=== PATIENT | male | born 1945 | race American Indian/Alaskan Native ===

== ENCOUNTER → 2017-04-17 | Outpatient (CLI) | payer MEDICARE, OTHER ==
[~2017-04-17] MED LIST: ALBU90OI6 INH; ASPI81CH PO; BENZ100A PO; BUME2 PO; CARV3.125 PO; CEFU500 PO; CLIN150 PO; CLIN300 PO; CODGUAEL PO; Cardizem Cd180 MG PO; Cephalexin500 MG PO; Coumadin6 MG PO; Coumadin7.5 MG PO; DEXA4 PO; DIETHYLPROPION; DILT120 PO; DILT180 PO; FURO40 PO; FURO80 PO; HYDACE5 PO; IBUP800 PO; Keflex500 MG PO; METO.5 PO; METO25 PO; METO50 PO; METOLAZONE PO; Micro-K10 MEQ; POTA10T PO; POTA20LUD PO; POTCHL10ER PO; POTCHL20ER PO; PROM25 PO; PROMACTA; Percocet 10-321 EACH PO; WARF2.5 PO; WARF5 PO
[2017-04-17 17:13] LABS: Albumin, Blood 4.2 g/dL (3.4-5.0); Albumin/Globulin Ratio 1.7 (0.8-1.8); Bilirubin, Total 0.8 mg/dL (0.1-1.0); Bun/Creatinine Ratio 12.3 (12.0-20.0); Calcium, Blood 8.7 mg/dL (8.5-10.1); Creatinine, Blood 1.3 mg/dL (0.60-1.20); Globulin, Blood 2.5 g/dL (2.2-4.0); Potassium, Blood 3.7 mmol/L (3.5-5.5); Total Protein, Blood 6.7 g/dL (6.4-8.2)
== END | disposition home or self-care (01) ==
LOC: LAB 16:18
PROVIDERS: Internal Medicine Hematology & Oncology
DX: C85.18 Unspecified B-cell lymphoma, lymph nodes of multiple sites (principal)
CPT/HCPCS: 80053

== ENCOUNTER → 2017-06-03 | Outpatient (CLI) | payer MEDICARE, OTHER ==
[2017-06-03 18:13] LABS: Prothrombin Time Results 56.9 Sec (9.7-11.5)
[2017-06-03 18:46] LABS: International Normalized Ratio 5.2
== END | disposition home or self-care (01) ==
LOC: LAB SHORT 16:00 → LAB 16:00
PROVIDERS: Internal Medicine Hematology & Oncology
DX: I82.4Z9 Acute embolism and thrombosis of unspecified deep veins of unspecified distal lower extremity (principal); I26.99 Other pulmonary embolism without acute cor pulmonale; D69.59 Other secondary thrombocytopenia
CPT/HCPCS: 85610

== ENCOUNTER 2017-06-10 05:54 | Emergency (ER) | payer MEDICARE, OTHER ==
[~2017-06-10] VITALS: Ht 167.6 cm; Wt 116.6 kg
[2017-06-10 07:00] LABS: BASOPHILS ABSOLUTE AUTO 0.12 K/mm3 (0.00-0.23); BASOPHILS PERCENT AUTO 2 % (0-2); EOSINOPHILS ABSOLUTE AUTO 0.16 K/mm3 (0.00-0.68); EOSINOPHILS PERCENT AUTO 2 % (0-6); Hematocrit 35.6 % (37.0-53.0); Hemoglobin 11.6 g/dL (13.5-17.5); IMMATURE GRAN ABSOLUTE AUTO 0.06 K/mm3 (0.00-0.10); IMMATURE GRAN PERCENT AUTO 1 % (0-1); LYMPHOCYTES ABSOLUTE AUTO 0.49 K/mm3 (0.84-5.20); LYMPHOCYTES PERCENT AUTO 6 % (21-46); MONOCYTES ABSOLUTE AUTO 0.61 K/mm3 (0.16-1.47); MONOCYTES PERCENT AUTO 8 % (4-13); Mean Corpuscular HGB 31.2 pg (26.0-34.0); Mean Corpuscular HGB Conc 32.6 g/dL (31.5-36.5); Mean Corpuscular Volume 96 fL (80-100); NEUTROPHILS ABSOLUTE AUTO 6.67 K/mm3 (1.96-9.15); NEUTROPHILS PERCENT AUTO 82 % (41-73); RDW Coefficient Variation 15.5 % (11.7-14.2); RDW Standard Deviation 53.3 fL (35.1-46.3); Red Blood Cell Count 3.72 M/mm3 (4.30-5.90); White Blood Cell Count 8.11 K/mm3 (4.00-11.30)
[2017-06-10 07:13] LABS: Alanine Aminotransfer (ALT/SGP 27 U/L (12-78); Albumin, Blood 2.9 g/dL (3.4-5.0); Albumin/Globulin Ratio 0.8 (0.8-1.8); Alk Phos 87 U/L (50-136); Anion Gap 7 mmol/L (6-16); Aspartate Aminotrans (AST/SGOT 21 U/L (12-37); Bilirubin, Total 1.6 mg/dL (0.1-1.0); Blood Urea Nitrogen 16 mg/dL (8-24); Bun/Creatinine Ratio 14.5 (12.0-20.0); CO2, Blood 30 mmol/L (21-32); Chloride, Blood 102 mmol/L (98-108); Globulin, Blood 3.5 g/dL (2.2-4.0); Glomerular Filtration Rate >60 (60-); Glucose, Blood 86 mg/dL (70-99); Potassium, Blood 3.3 mmol/L (3.5-5.5); Sodium, Blood 139 mmol/L (136-145); Total Protein, Blood 6.4 g/dL (6.4-8.2); Troponin I <0.015 ng/mL (0.000-0.040)
[2017-06-10 07:18] LABS: International Normalized Ratio 1.1; Prothrombin Time Results 11.5 Sec (9.7-11.5)
[2017-06-10 07:21] LABS: Mean Platelet Volume 13.1 fL (9.1-12.4)
[2017-06-10 07:28] LABS: Platelet Count 24 K/mm3 (150-400)
== END 2017-06-10 10:05 | disposition home or self-care (01) ==
LOC: ER 05:54
PROVIDERS: Emergency Medicine
DX: R07.89 Other chest pain (principal); R06.00 Dyspnea, unspecified; D69.3 Immune thrombocytopenic purpura; M79.81 Nontraumatic hematoma of soft tissue; I48.91 Unspecified atrial fibrillation; Z79.899 Other long term (current) drug therapy; Z86.711 Personal history of pulmonary embolism
CPT/HCPCS: 36415; 71046; 71260; 80053; 84484; 85025; 85610; 93005; 93010; 93971; 99283; Q9967

== ENCOUNTER → 2017-06-26 | Outpatient (CLI) | payer MEDICARE, OTHER ==
[2017-06-26 17:38] LABS: Alanine Aminotransfer (ALT/SGP 17 U/L (12-78); Albumin, Blood 2.9 g/dL (3.4-5.0); Albumin/Globulin Ratio 1.2 (0.8-1.8); Alk Phos 72 U/L (50-136); Anion Gap 7 mmol/L (6-16); Aspartate Aminotrans (AST/SGOT 18 U/L (12-37); Bilirubin, Total 0.7 mg/dL (0.1-1.0); Blood Urea Nitrogen 18 mg/dL (8-24); Bun/Creatinine Ratio 17.1 (12.0-20.0); CO2, Blood 31 mmol/L (21-32); Calcium, Blood 7.9 mg/dL (8.5-10.1); Chloride, Blood 105 mmol/L (98-108); Creatinine, Blood 1.05 mg/dL (0.60-1.20); Free Thyroxine 1.04 ng/dL (0.70-1.60); Globulin, Blood 2.4 g/dL (2.2-4.0); Glomerular Filtration Rate >60 (60-); Glucose, Blood 108 mg/dL (70-99); Potassium, Blood 2.8 mmol/L (3.5-5.5); Sodium, Blood 143 mmol/L (136-145); Total Protein, Blood 5.3 g/dL (6.4-8.2)
== END | disposition home or self-care (01) ==
LOC: LAB SHORT 16:43
PROVIDERS: Internal Medicine Hematology & Oncology
DX: C85.18 Unspecified B-cell lymphoma, lymph nodes of multiple sites (principal); D69.3 Immune thrombocytopenic purpura; R53.81 Other malaise; R53.83 Other fatigue
CPT/HCPCS: 80053; 83735; 84439; 84443

== ENCOUNTER → 2017-07-04 | Outpatient (CLI) | payer MEDICARE, OTHER ==
[2017-07-04 18:35] LABS: Alanine Aminotransfer (ALT/SGP 26 U/L (12-78); Albumin, Blood 3.2 g/dL (3.4-5.0); Albumin/Globulin Ratio 1.2 (0.8-1.8); Alk Phos 83 U/L (50-136); Anion Gap 11 mmol/L (6-16); Aspartate Aminotrans (AST/SGOT 27 U/L (12-37); Bilirubin, Total 0.6 mg/dL (0.1-1.0); Blood Urea Nitrogen 16 mg/dL (8-24); CO2, Blood 30 mmol/L (21-32); Calcium, Blood 8.3 mg/dL (8.5-10.1); Chloride, Blood 101 mmol/L (98-108); Creatinine, Blood 1.07 mg/dL (0.60-1.20); Globulin, Blood 2.7 g/dL (2.2-4.0); Glomerular Filtration Rate >60 (60-); Glucose, Blood 128 mg/dL (70-99); Potassium, Blood 3.1 mmol/L (3.5-5.5); Sodium, Blood 142 mmol/L (136-145); Total Protein, Blood 5.9 g/dL (6.4-8.2)
[2017-07-04 18:41] LABS: International Normalized Ratio 1.09; Prothrombin Time Results 11.4 Sec (9.7-11.5)
== END ==
LOC: LAB 11:25 → LAB SHORT 11:25
PROVIDERS: Internal Medicine Hematology & Oncology
DX: Z79.01 Long term (current) use of anticoagulants (principal); Z51.81 Encounter for therapeutic drug level monitoring; D69.3 Immune thrombocytopenic purpura
CPT/HCPCS: 80053; 85610

== ENCOUNTER → 2018-06-02 | Outpatient (CLI) | payer MEDICARE, OTHER ==
[2018-06-02 13:59] LABS: BASOPHILS ABSOLUTE AUTO 0.03 K/mm3 (0.00-0.23); BASOPHILS PERCENT AUTO 0 % (0-2); EOSINOPHILS ABSOLUTE AUTO 0.23 K/mm3 (0.00-0.68); EOSINOPHILS PERCENT AUTO 2 % (0-6); Hematocrit 41.3 % (37.0-53.0); Hemoglobin 13.3 g/dL (13.5-17.5); IMMATURE GRAN ABSOLUTE AUTO 0.27 K/mm3 (0.00-0.10); IMMATURE GRAN PERCENT AUTO 3 % (0-1); LYMPHOCYTES ABSOLUTE AUTO 0.84 K/mm3 (0.84-5.20); LYMPHOCYTES PERCENT AUTO 8 % (21-46); MONOCYTES PERCENT AUTO 6 % (4-13); Mean Corpuscular HGB 30.6 pg (26.0-34.0); Mean Corpuscular HGB Conc 32.2 g/dL (31.5-36.5); Mean Corpuscular Volume 95 fL (80-100); NEUTROPHILS ABSOLUTE AUTO 8.05 K/mm3 (1.96-9.15); NEUTROPHILS PERCENT AUTO 80 % (41-73); RDW Coefficient Variation 15.8 % (11.7-14.2); RDW Standard Deviation 55.5 fL (35.1-46.3); Red Blood Cell Count 4.35 M/mm3 (4.30-5.90); White Blood Cell Count 10.02 K/mm3 (4.00-11.30)
[2018-06-02 14:07] LABS: Mean Platelet Volume 13.2 fL (9.1-12.4)
[2018-06-02 14:09] LABS: Platelet Count 45 K/mm3 (150-400)
== END | disposition home or self-care (01) ==
LOC: LAB 13:11 → LAB SHORT 13:11
PROVIDERS: Internal Medicine Hematology & Oncology
DX: D69.3 Immune thrombocytopenic purpura (principal)
CPT/HCPCS: 85025

== ENCOUNTER 2018-06-24 06:59 | Day surgery (SDC) | payer MEDICARE, OTHER ==
[~2018-06-24] VITALS: Ht 167.6 cm; Wt 112.7 kg
[~2018-06-24 06:59] MED LIST changes: +DIGOX125 MCG PO; +ELIQUIS5 MG PO; +LOSA50 PO; +METO100ER PO; +SPIR50 PO
--- NOTE | 2018-06-24 07:51 | NUR ---
06/24/18 0751 Mikhail Ludwig 1ST IV ATTEMPT IN LFA UNSUCCESSFUL, ORSC.GERALD 2ND IV ATTEMPT IN LAC UNSUCCESSFUL, ORSC.GERALD 3RD IV ATTEMPT IN RH SUCCESSFUL, ORSC.GERALD
== END 2018-06-24 08:48 | disposition home or self-care (01) ==
LOC: ORSCSDS 06:59
PROVIDERS: Ophthalmology
PROC: 08RJ3JZ Replacement of Right Lens with Synthetic Substitute, Percutaneous Approach (ICD-10-PCS; principal; 2018-06-24 08:00)
DX: H25.11 Age-related nuclear cataract, right eye (principal); I10 Essential (primary) hypertension; I48.91 Unspecified atrial fibrillation; Z79.01 Long term (current) use of anticoagulants; E66.01 Morbid (severe) obesity due to excess calories; Z68.41 Body mass index [BMI] 40.0-44.9, adult
CPT/HCPCS: J2001; J3010; J3301; V2632

== ENCOUNTER 2018-06-29 17:58 | Inpatient (IN) | payer MEDICARE, OTHER ==
[~2018-06-29] VITALS: Ht 172.7 cm; Wt 112.3 kg
[2018-06-29 19:23] LABS: BASOPHILS ABSOLUTE AUTO 0.09 K/mm3 (0.00-0.23); BASOPHILS PERCENT AUTO 1 % (0-2); EOSINOPHILS ABSOLUTE AUTO 0.09 K/mm3 (0.00-0.68); EOSINOPHILS PERCENT AUTO 1 % (0-6); Hematocrit 43.2 % (37.0-53.0); Hemoglobin 13.7 g/dL (13.5-17.5); IMMATURE GRAN ABSOLUTE AUTO 0.07 K/mm3 (0.00-0.10); IMMATURE GRAN PERCENT AUTO 1 % (0-1); LYMPHOCYTES ABSOLUTE AUTO 0.77 K/mm3 (0.84-5.20); LYMPHOCYTES PERCENT AUTO 11 % (21-46); MONOCYTES ABSOLUTE AUTO 0.73 K/mm3 (0.16-1.47); MONOCYTES PERCENT AUTO 10 % (4-13); Mean Corpuscular HGB 30.4 pg (26.0-34.0); Mean Corpuscular HGB Conc 31.7 g/dL (31.5-36.5); Mean Corpuscular Volume 96 fL (80-100); NEUTROPHILS ABSOLUTE AUTO 5.38 K/mm3 (1.96-9.15); NEUTROPHILS PERCENT AUTO 75 % (41-73); RDW Coefficient Variation 16.1 % (11.7-14.2); RDW Standard Deviation 57.1 fL (35.1-46.3); White Blood Cell Count 7.13 K/mm3 (4.00-11.30)
[2018-06-29 19:42] LABS: Platelet Count 10 K/mm3 (150-400)
[2018-06-29 19:49] LABS: Alanine Aminotransfer (ALT/SGP 24 U/L (12-78); Albumin, Blood 3.4 g/dL (3.4-5.0); Albumin/Globulin Ratio 1.2 (0.8-1.8); Alk Phos 74 U/L (50-136); Anion Gap 5 mmol/L (6-16); Aspartate Aminotrans (AST/SGOT 19 U/L (12-37); Bilirubin, Total 0.7 mg/dL (0.1-1.0); Blood Urea Nitrogen 19 mg/dL (8-24); CO2, Blood 29 mmol/L (21-32); Calcium, Blood 8.9 mg/dL (8.5-10.1); Chloride, Blood 106 mmol/L (98-108); Creatinine, Blood 1.19 mg/dL (0.60-1.20); Globulin, Blood 2.8 g/dL (2.2-4.0); Glomerular Filtration Rate >60 (60-); Glucose, Blood 87 mg/dL (70-99); Potassium, Blood 3.9 mmol/L (3.5-5.5); Sodium, Blood 140 mmol/L (136-145); Total Protein, Blood 6.2 g/dL (6.4-8.2)
[2018-06-29 21:08] LABS: International Normalized Ratio 0.99; Prothrombin Time Results 10.5 Sec (9.7-11.5)
[2018-06-29] MEDS ORDERED: Prednisolone Ace5 ML RIGHTEYE (21:17)
[2018-06-29] MEDS ORDERED: Ocuflox5 ML RIGHTEYE (21:19)
[2018-06-29] MEDS ORDERED: KETOROLAC TROMET5 ML RIGHTEYE (21:20)
[2018-06-29 23:52] LABS: Source, Urine Clean Catch
[2018-06-29 23:54] LABS: Bilirubin, Urine Neg (Neg); Blood, Urine Neg (Neg); Glucose Qualitative, Urine Neg (Neg); Ketones, Urine Neg (Neg); Leukocyte Esterase, Urine Neg (Neg); Nitrite, Urine Neg (Neg); Protein, Urine Neg (Neg); Specific Gravity, Urine 1.015 (1.003-1.022); Urobilinogen, Urine NORM (Normal)
[2018-06-29 23:56] LABS: Appearance, Urine Clear (Clear); Color, Urine Yellow (P-Yellow)
--- NOTE | 2018-06-30 01:15 | NUR ---
PT ARRIVES TO ICU 8 VIA GURNEY FROM ER FOR THROMBOCYTOPENIA, STANDS TO TRANSFER WITH STEADY GAIT, STATES PREFERENCE TO REMAIN IN JEANS AND T-SHIRT, DENIES PAIN, DENIES NAUSEA, DENIES SOB/DYSPNEA, DENIES CP/PRESSURE, DENIES NUMBNESS/TINGLING. SPEAKING IN FULL SENTANCES, STATES THAT HE DOES NOT UNDERSTAND WHY HE NEEDS TO BE IN THE ICU. EXPLAINED RISK OF BLEEDING RELATED TO LOW PLATELET COUNT AND THAT HE IS IN THE ICU FOR CLOSE MONITORING FOR BLEEDING. LUNGS CLEAR THROUGHOUT, MAINTAINING SATS ON ROOM AIR, RESP RATE WNL, NO INCREASED WORK OF BREATHING IS NOTED EVEN WITH INCREASE IN ACTIVITY. HR IRREG, AFIB NOTED ON MONITOR, PT STATES HE HAS A HX OF AFIB, RATE CONTROLLED 60-80S, BP STABLE, BRISK CAP REFILL, NO EDEMA NOTED, PULSES FULL X 4 EXTREMITIES. NORMOACTIVE BOWEL TONES NOTED, ABD DISTENDED, SOFT, NO GRIMACING OR GAURDING WITH PALPATION. 20 G SL NOTED TO RIGHT AC, DRESSING CDI, SITE WNL. SCATTERED BRUISING IS NOTED, WILL MONITOR.
[2018-06-30 04:12] LABS: Hemoglobin 13.1 g/dL (13.5-17.5); Mean Corpuscular HGB 30.8 pg (26.0-34.0); Mean Corpuscular Volume 96 fL (80-100); RDW Standard Deviation 57.3 fL (35.1-46.3); Red Blood Cell Count 4.26 M/mm3 (4.30-5.90); White Blood Cell Count 7.15 K/mm3 (4.00-11.30)
[2018-06-30 04:42] LABS: Digoxin (Lanoxin) 0.71 ug/mL (0.80-2.00)
[2018-06-30 04:46] LABS: Platelet Count 12 K/mm3 (150-400)
--- NOTE | 2018-06-30 05:37 | NUR ---
TALKED TO PT, HE STATES HE DOESN'T USE HIS CPAP AT HOME AND HE IS NOT GOING TO USE OURS HERE, SATS 96% ON RA.
--- NOTE | 2018-06-30 06:42 | NUR ---
PT NEW ADMIT THIS SHIFT, HAS STATED THAT HE IS NOT HAPPY WITH ADMISSION AND THAT HE IS TOO BUSY TO BE HOSPITALIZED. THIS AM HE STATES THAT HE BELIEVES HE IS ONLY ADMITTED OVERNOC FOR OBSERVATION OF PLATELET LEVELS. HE IS ALERT AND ORIENTED X 3, SPEAKING IN FULL SENTANCES, CONTINUES TO DENY PAIN, DENIES CP/PRESSURE, DENIES SOB/DYSPNEA, DENIES NAUSEA. CONTINUES WITHOUT SIGNS/SYMPTOMS OF BLEEDING. AM LABS DRAWN FROM 20 G IV TO RIGHT AC, PT TOLERATED WELL. LUNGS REMAIN CLEAR THROUGHOUT, SATS MAINTAINING ON ROOM AIR, RESP RATE WNL, AFIB CONTINUES, PRESSURE MAINTAINING, PULSES REMAIN FULL X 4 EXTREMITIES. ABD REMAINS SOFT WITH ACTIVE BOWEL TONES. PT HAS NOT VOIDED SINCE ADMISSION. PLATELET LEVEL THIS AM REMAINED CRITICALLY LOW HOWEVER IMPROVED TO 12 FROM 10.
--- NOTE | 2018-06-30 07:55 | NUR ---
AM ASSESSMENT: Pt resting in bed. VSS. LS clear. HR irregular, tele shows afib. BT positive. Pulses palp. Pt denies pain. States that he is feeling pretty good. Hoping to be discharged today. Multiple bruising over arms. Will monitor for changes. Pt denies other needs. Call light in reach.
--- NOTE | 2018-06-30 18:21 | NUR ---
shift Summary: Pt has done well this shift. No S/S of bleeding. VSS throughout shift. HR has remained afib rate in the 60's. BT positive. Pt has been voiding clear yellow urine. NO increase in bleeding on arms. Pt has been disappointed that he was not discharged today, and that he has to stay one more night. Explained that the physicains wanted to do one more lab draw in the am to make sure that the decadron is working. Report was called to medical floor RN and pt was transfered to room 340 via w/cNicolás Burnett at time of transfer.
--- NOTE | 2018-06-30 18:31 | NUR ---
ASSUMED CARE ICU TRANSFER AT DINNERTIME. PATIENT SETTLED INTO ROOM. DENIES PAIN, NAUSEA, AND SHORTNESS OF BREATH. INDEPENDENT IN THE ROOM. PATIENT STATES HE BELIEVES HIS PLATELETS SHOULD HAVE BEEN MEASURED AGAIN THIS AFTERNOON. HE WOULD LIKE TO BE RELEASED EARLY POSSIBLE IN THE MORNING. REFUSED DINNER, FAMILY IS BRINGING HIM OUTSIDE FOOD THAT APPEALS BETTER TO HIM. CALL LIGHT IN REACH, WILL CONTINUE TO MONITOR.
--- NOTE | 2018-07-01 02:56 | NUR ---
PT WAS TRANSFERRED FROM icu WITH LOW PLATELET COUNT. HE HAS order for steroids for thrombocytopenia. no s/sx of active bleeding. he is on room air VSS hopes to dc home today. he says he has and appt in [place] today at 1 pm. no stool to [facility]. Denies acute distress. He used own eyegtts said he had cataract removal on 06/25/18 and is seeing weel, better than prior to surgery. Appears to have good family support.
[2018-07-01 05:26] LABS: Hematocrit 41.7 % (37.0-53.0); Hemoglobin 13.5 g/dL (13.5-17.5); Mean Corpuscular HGB Conc 32.4 g/dL (31.5-36.5); Mean Corpuscular Volume 96 fL (80-100); NRBC ABSOLUTE 0.02 K/mm3 (0.00-0.02); NRBC Auto 0.1 /100 WBC (0.0-0.2); Platelet Count 71 K/mm3 (150-400); RDW Coefficient Variation 15.9 % (11.7-14.2); RDW Standard Deviation 56.5 fL (35.1-46.3); Red Blood Cell Count 4.35 M/mm3 (4.30-5.90); White Blood Cell Count 15.16 K/mm3 (4.00-11.30)
--- NOTE | 2018-07-01 06:03 | NUR ---
PT REFUSED PROTONIX THIS AM AND LAST PM. HE IS QUIET AND SAYS HE DOES'T UNDERSTAND WHY HOSPITALS ARE TRYING TO PUSH PILLS IN PEOPLE. EXPLAINED MD HAD RX DUE TO STEROIDS. PT CONTINUED TO REFUSE. NO STOOLS TO SHANDRA.
[2018-07-01] MEDS ORDERED: DEXA4 PO (11:25)
[2018-07-01] MEDS ORDERED: PANT20 PO (11:26)
--- NOTE | 2018-07-01 12:10 | NUR ---
PT DISCHARGED AT 12:10. PT WALKED HIMSELF OUT OF THE HOSPITAL.
== END 2018-07-01 12:05 | disposition home or self-care (01) | DRG 813 ==
LOC: ER 17:58 → ICUW 21:38 → ICUE 21:38 → MEDS 06-30 01:30 → ICUE 06-30 08:28 → MEDS 06-30 18:03
PROVIDERS: Emergency Medicine; Internal Medicine; Nurse Practitioner Acute Care; Physician Assistant; ADMIT Internal Medicine
DX: D69.3 Immune thrombocytopenic purpura (principal); I50.32 Chronic diastolic (congestive) heart failure; E66.2 Morbid (severe) obesity with alveolar hypoventilation; Z96.651 Presence of right artificial knee joint; Z90.81 Acquired absence of spleen; Z68.38 Body mass index [BMI] 38.0-38.9, adult; I48.2 Chronic atrial fibrillation; Z86.711 Personal history of pulmonary embolism; Z86.718 Personal history of other venous thrombosis and embolism
CPT/HCPCS: 36415; 80053; 80162; 81003; 85025; 85027; 85610; 85730; 96374; 99285-25; C9113; J2930

== ENCOUNTER 2018-08-04 23:14 | Emergency (ER) | payer MEDICARE, OTHER ==
[~2018-08-04] VITALS: Ht 165.1 cm; Wt 111.6 kg
[~2018-08-04 23:14] MED LIST changes: +KETOROLAC TROMET5 ML RIGHTEYE; -LOSA50 PO; +LOSARTAN POTAS100 MG PO; +Ocuflox5 ML RIGHTEYE; +PANT20 PO; +Prednisolone Ace5 ML RIGHTEYE; +SPIR25 PO; -SPIR50 PO
[2018-08-05 00:09] LABS: BASOPHILS ABSOLUTE AUTO 0.07 K/mm3 (0.00-0.23); BASOPHILS PERCENT AUTO 1 % (0-2); EOSINOPHILS ABSOLUTE AUTO 0.07 K/mm3 (0.00-0.68); EOSINOPHILS PERCENT AUTO 1 % (0-6); Hematocrit 40.9 % (37.0-53.0); Hemoglobin 13.1 g/dL (13.5-17.5); IMMATURE GRAN ABSOLUTE AUTO 0.47 K/mm3 (0.00-0.10); IMMATURE GRAN PERCENT AUTO 5 % (0-1); LYMPHOCYTES ABSOLUTE AUTO 0.84 K/mm3 (0.84-5.20); LYMPHOCYTES PERCENT AUTO 8 % (21-46); MONOCYTES ABSOLUTE AUTO 1.05 K/mm3 (0.16-1.47); MONOCYTES PERCENT AUTO 10 % (4-13); Mean Corpuscular HGB 31.2 pg (26.0-34.0); Mean Corpuscular Volume 97 fL (80-100); NEUTROPHILS ABSOLUTE AUTO 7.79 K/mm3 (1.96-9.15); NEUTROPHILS PERCENT AUTO 76 % (41-73); NRBC ABSOLUTE 0.02 K/mm3 (0.00-0.02); NRBC Auto 0.2 /100 WBC (0.0-0.2); RDW Coefficient Variation 16.9 % (11.7-14.2); RDW Standard Deviation 60.1 fL (35.1-46.3); White Blood Cell Count 10.29 K/mm3 (4.00-11.30)
[2018-08-05 00:11] LABS: Platelet Count 11 K/mm3 (150-400)
[2018-08-05 00:29] LABS: Alanine Aminotransfer (ALT/SGP 28 U/L (12-78); Alk Phos 72 U/L (50-136); Anion Gap 6 mmol/L (6-16); Aspartate Aminotrans (AST/SGOT 17 U/L (12-37); Bilirubin, Total 0.5 mg/dL (0.1-1.0); Blood Urea Nitrogen 19 mg/dL (8-24); Bun/Creatinine Ratio 15.4 (12.0-20.0); CO2, Blood 29 mmol/L (21-32); Calcium, Blood 8.2 mg/dL (8.5-10.1); Chloride, Blood 106 mmol/L (98-108); Creatinine, Blood 1.23 mg/dL (0.60-1.20); Globulin, Blood 2.9 g/dL (2.2-4.0); Glomerular Filtration Rate >60 (60-); Glucose, Blood 101 mg/dL (70-99); Potassium, Blood 4.4 mmol/L (3.5-5.5); Sodium, Blood 141 mmol/L (136-145); Total Protein, Blood 5.9 g/dL (6.4-8.2)
[2018-08-05] MEDS ORDERED: HYDR1TAB94 PO (00:29)
[2018-08-05] MEDS ORDERED: PRED20 PO (00:29)
[2018-08-05 00:36] LABS: Digoxin (Lanoxin) 0.53 ug/mL (0.80-2.00)
== END 2018-08-05 02:25 | disposition home or self-care (01) ==
LOC: ER 23:14
PROVIDERS: Emergency Medicine
DX: S09.90XA Unspecified injury of head, initial encounter (principal); S50.01XA Contusion of right elbow, initial encounter; M25.511 Pain in right shoulder; D69.6 Thrombocytopenia, unspecified; W10.9XXA Fall (on) (from) unspecified stairs and steps, initial encounter; Z79.899 Other long term (current) drug therapy; Z79.52 Long term (current) use of systemic steroids
CPT/HCPCS: 36415; 70450; 73030; 73070; 80053; 80162; 85025; 86850; 86870; 86900; 86901; 86905; 96374; 96375; 99284-25; J1170; J2405; J2930

== ENCOUNTER 2018-08-19 12:40 | Inpatient (IN) | payer MEDICARE, OTHER ==
[~2018-08-19] VITALS: Ht 167.6 cm; Wt 109.8 kg
[~2018-08-19 12:40] MED LIST changes: +HYDR1TAB94 PO; +PRED20 PO
[2018-08-19 13:40] LABS: BASOPHILS ABSOLUTE AUTO 0.02 K/mm3 (0.00-0.23); BASOPHILS PERCENT AUTO 0 % (0-2); EOSINOPHILS PERCENT AUTO 1 % (0-6); Hematocrit 36.2 % (37.0-53.0); Hemoglobin 11.8 g/dL (13.5-17.5); IMMATURE GRAN ABSOLUTE AUTO 0.33 K/mm3 (0.00-0.10); IMMATURE GRAN PERCENT AUTO 2 % (0-1); LYMPHOCYTES ABSOLUTE AUTO 0.45 K/mm3 (0.84-5.20); LYMPHOCYTES PERCENT AUTO 3 % (21-46); MONOCYTES ABSOLUTE AUTO 0.66 K/mm3 (0.16-1.47); MONOCYTES PERCENT AUTO 4 % (4-13); Mean Corpuscular HGB 31.6 pg (26.0-34.0); Mean Corpuscular HGB Conc 32.6 g/dL (31.5-36.5); Mean Corpuscular Volume 97 fL (80-100); NEUTROPHILS ABSOLUTE AUTO 15.56 K/mm3 (1.96-9.15); NEUTROPHILS PERCENT AUTO 91 % (41-73); NRBC ABSOLUTE 0.06 K/mm3 (0.00-0.02); NRBC Auto 0.4 /100 WBC (0.0-0.2); RDW Coefficient Variation 18.3 % (11.7-14.2); RDW Standard Deviation 63.7 fL (35.1-46.3); Red Blood Cell Count 3.74 M/mm3 (4.30-5.90); White Blood Cell Count 17.12 K/mm3 (4.00-11.30)
[2018-08-19 13:58] LABS: Platelet Count 32 K/mm3 (150-400)
[2018-08-19 14:04] LABS: Alanine Aminotransfer (ALT/SGP 31 U/L (12-78); Albumin, Blood 2.7 g/dL (3.4-5.0); Albumin/Globulin Ratio 0.8 (0.8-1.8); Alk Phos 65 U/L (50-136); Anion Gap 4 mmol/L (6-16); Aspartate Aminotrans (AST/SGOT 21 U/L (12-37); Bilirubin, Total 1.5 mg/dL (0.1-1.0); Blood Urea Nitrogen 27 mg/dL (8-24); CO2, Blood 33 mmol/L (21-32); Calcium, Blood 8.2 mg/dL (8.5-10.1); Chloride, Blood 98 mmol/L (98-108); Creatinine, Blood 1.23 mg/dL (0.60-1.20); Globulin, Blood 3.2 g/dL (2.2-4.0); Glomerular Filtration Rate >60 (60-); Glucose, Blood 88 mg/dL (70-99); Potassium, Blood 3.7 mmol/L (3.5-5.5); Sodium, Blood 135 mmol/L (136-145); Total Protein, Blood 5.9 g/dL (6.4-8.2); Troponin I <0.015 ng/mL (0.000-0.040)
[2018-08-19 15:24] LABS: Digoxin (Lanoxin) 1.04 ug/mL (0.80-2.00)
[2018-08-19 18:18] LABS: Source, Urine Clean Catch
[2018-08-19 18:32] LABS: Appearance, Urine Clear (Clear); Bilirubin, Urine Neg (Neg); Blood, Urine Neg (Neg); Color, Urine Amber (P-Yellow); Glucose Qualitative, Urine Neg (Neg); Ketones, Urine Neg (Neg); Leukocyte Esterase, Urine Neg (Neg); Nitrite, Urine Neg (Neg); Protein, Urine 2+ (Neg); Urobilinogen, Urine 3+ (Normal); pH, Urine 6.5 (5.0-8.0)
[2018-08-19 18:42] LABS: Bacteria Mod /hpf; Red Blood Cells, Urine 0-2 /hpf (0-2); Squamous Epithelial Cells Not Seen /hpf (Few); White Blood Cells, Urine 0-2 /hpf (0-5)
[2018-08-20 03:49] LABS: Hematocrit 30.9 % (37.0-53.0); Hemoglobin 10.1 g/dL (13.5-17.5); Mean Corpuscular HGB 32.1 pg (26.0-34.0); Mean Corpuscular HGB Conc 32.7 g/dL (31.5-36.5); Mean Corpuscular Volume 98 fL (80-100); NRBC ABSOLUTE 0.06 K/mm3 (0.00-0.02); NRBC Auto 0.4 /100 WBC (0.0-0.2); RDW Coefficient Variation 18.3 % (11.7-14.2); RDW Standard Deviation 65.5 fL (35.1-46.3); Red Blood Cell Count 3.15 M/mm3 (4.30-5.90)
[2018-08-20 03:52] LABS: Mean Platelet Volume 13.1 fL (9.1-12.4); Platelet Count 44 K/mm3 (150-400)
[2018-08-20 04:09] LABS: Anion Gap 5 mmol/L (6-16); Blood Urea Nitrogen 21 mg/dL (8-24); Bun/Creatinine Ratio 22.7 (12.0-20.0); CO2, Blood 29 mmol/L (21-32); Calcium, Blood 7.4 mg/dL (8.5-10.1); Chloride, Blood 105 mmol/L (98-108); Creatinine, Blood 0.93 mg/dL (0.60-1.20); Glomerular Filtration Rate >60 (60-); Glucose, Blood 125 mg/dL (70-99); Potassium, Blood 4.1 mmol/L (3.5-5.5); Sodium, Blood 139 mmol/L (136-145)
[2018-08-21 04:44] LABS: Hematocrit 29.6 % (37.0-53.0); Hemoglobin 9.6 g/dL (13.5-17.5); Mean Corpuscular HGB 31.7 pg (26.0-34.0); Mean Corpuscular HGB Conc 32.4 g/dL (31.5-36.5); Mean Corpuscular Volume 98 fL (80-100); Mean Platelet Volume 12.3 fL (9.1-12.4); NRBC ABSOLUTE 0.05 K/mm3 (0.00-0.02); NRBC Auto 0.4 /100 WBC (0.0-0.2); Platelet Count 73 K/mm3 (150-400); RDW Coefficient Variation 18.4 % (11.7-14.2); RDW Standard Deviation 65.4 fL (35.1-46.3); Red Blood Cell Count 3.03 M/mm3 (4.30-5.90); White Blood Cell Count 11.99 K/mm3 (4.00-11.30)
[2018-08-21 05:03] LABS: Anion Gap 4 mmol/L (6-16); Blood Urea Nitrogen 17 mg/dL (8-24); Bun/Creatinine Ratio 17.5 (12.0-20.0); CO2, Blood 31 mmol/L (21-32); Chloride, Blood 105 mmol/L (98-108); Creatinine, Blood 0.97 mg/dL (0.60-1.20); Glomerular Filtration Rate >60 (60-); Glucose, Blood 88 mg/dL (70-99); Potassium, Blood 3.9 mmol/L (3.5-5.5); Sodium, Blood 140 mmol/L (136-145)
[2018-08-22 04:56] LABS: Hematocrit 30.5 % (37.0-53.0); Hemoglobin 9.6 g/dL (13.5-17.5); Mean Corpuscular HGB 31.2 pg (26.0-34.0); Mean Corpuscular HGB Conc 31.5 g/dL (31.5-36.5); Mean Corpuscular Volume 99 fL (80-100); Mean Platelet Volume 11.7 fL (9.1-12.4); NRBC ABSOLUTE 0.05 K/mm3 (0.00-0.02); NRBC Auto 0.5 /100 WBC (0.0-0.2); Platelet Count 82 K/mm3 (150-400); RDW Coefficient Variation 18.5 % (11.7-14.2); RDW Standard Deviation 66.4 fL (35.1-46.3); Red Blood Cell Count 3.08 M/mm3 (4.30-5.90); White Blood Cell Count 10.94 K/mm3 (4.00-11.30)
[2018-08-22] MEDS ORDERED: LOSA25 PO (11:07)
[2018-08-22] MEDS ORDERED: POTA10T PO (11:08)
[2018-08-22] MEDS ORDERED: Bactrim Ds Tab1 EACH PO (11:09)
[2018-08-22] MEDS ORDERED: Vsl#3 Capsule1 EACH PO (11:09)
== END 2018-08-22 12:50 | disposition home or self-care (01) | DRG 872 ==
LOC: ER 12:40 → PCU 17:18 → MEDS 17:18 → PCU 20:50 → SURS 08-21 12:16
PROVIDERS: Emergency Medicine; ADMIT Internal Medicine
DX: A41.9 Sepsis, unspecified organism (principal); I50.32 Chronic diastolic (congestive) heart failure; D69.3 Immune thrombocytopenic purpura; L03.115 Cellulitis of right lower limb; R65.20 Severe sepsis without septic shock; G47.33 Obstructive sleep apnea (adult) (pediatric); I48.91 Unspecified atrial fibrillation; I95.9 Hypotension, unspecified; E66.9 Obesity, unspecified; Z86.718 Personal history of other venous thrombosis and embolism; Z68.39 Body mass index [BMI] 39.0-39.9, adult; Z79.52 Long term (current) use of systemic steroids; Z79.899 Other long term (current) drug therapy
CPT/HCPCS: 36415; 71046; 71260; 73630; 80048; 80053; 80162; 80400; 81001; 82024; 82533; 83605; 83880; 84484; 85025; 85027; 87040; 87086; 93005; 93010; 93971; 96361-59; 96365-59; 96375-59; 99285-25; A9270; C1751; J0690; J0696; J0834; J2930; J7030; J7050; J7120; Q9967

== ENCOUNTER → 2020-06-12 | Outpatient (CLI) | payer MEDICARE, OTHER ==
[~2020-06-12] MED LIST changes: +Bactrim Ds Tab1 EACH PO; +LOSA25 PO; +Vsl#3 Capsule1 EACH PO
[2020-06-12 20:03] LABS: PSA, %Free 8.1 %; PSA, Free 0.732 ng/mL
== END | disposition home or self-care (01) ==
LOC: LAB 17:20 → LAB SHORT 17:20
PROVIDERS: Internal Medicine Hematology & Oncology
DX: R97.20 Elevated prostate specific antigen [PSA] (principal)
CPT/HCPCS: 84153; 84154

== ENCOUNTER → 2020-10-26 | Outpatient (CLI) | payer MEDICARE, OTHER ==
[2020-10-26 17:54] LABS: BASOPHILS ABSOLUTE AUTO 0.16 K/mm3 (0.00-0.23); BASOPHILS PERCENT AUTO 2 % (0-2); EOSINOPHILS PERCENT AUTO 2 % (0-6); Hemoglobin 14.9 g/dL (13.5-17.5); IMMATURE GRAN ABSOLUTE AUTO 0.03 K/mm3 (0.00-0.10); IMMATURE GRAN PERCENT AUTO 0 % (0-1); LYMPHOCYTES PERCENT AUTO 10 % (21-46); MONOCYTES PERCENT AUTO 7 % (4-13); Mean Corpuscular HGB Conc 33.1 g/dL (31.5-36.5); Mean Corpuscular Volume 94 fL (80-100); NEUTROPHILS ABSOLUTE AUTO 6.73 K/mm3 (1.96-9.15); NEUTROPHILS PERCENT AUTO 78 % (41-73); RDW Coefficient Variation 14.8 % (11.7-14.2); RDW Standard Deviation 51.6 fL (35.1-46.3); Red Blood Cell Count 4.81 M/mm3 (4.30-5.90); White Blood Cell Count 8.62 K/mm3 (4.00-11.30)
[2020-10-26 18:17] LABS: Platelet Count 14 K/mm3 (150-400)
== END | disposition home or self-care (01) ==
LOC: LAB SHORT 15:00 → LAB 15:00
PROVIDERS: Internal Medicine Hematology & Oncology
DX: D69.3 Immune thrombocytopenic purpura (principal)
CPT/HCPCS: 85025

== ENCOUNTER 2021-01-10 06:25 | Day surgery (SDC) | payer MEDICARE, OTHER ==
[~2021-01-10] VITALS: Ht 167.6 cm; Wt 109.4 kg
--- NOTE | 2021-01-10 07:12 | NUR ---
01/10/21 0712 BRIAN RENNER TETRACAINE IN LEFT EYE 0640 PLEDGET IN LEFT EYE 0631
== END 2021-01-10 08:15 | disposition home or self-care (01) ==
LOC: ORSCSDS 06:25
PROVIDERS: Ophthalmology
PROC: 08RK3JZ Replacement of Left Lens with Synthetic Substitute, Percutaneous Approach (ICD-10-PCS; principal; 2021-01-10 07:30)
DX: H25.12 Age-related nuclear cataract, left eye (principal); I48.91 Unspecified atrial fibrillation; Z79.01 Long term (current) use of anticoagulants; E66.01 Morbid (severe) obesity due to excess calories; Z68.39 Body mass index [BMI] 39.0-39.9, adult; Z79.899 Other long term (current) drug therapy
CPT/HCPCS: J2001; J2250; J3010; J3301; J7040; V2632

== ENCOUNTER → 2021-03-05 | Outpatient (CLI) | payer MEDICARE, OTHER ==
[2021-03-05 10:52] LABS: BASOPHILS ABSOLUTE AUTO 0.15 K/mm3 (0.00-0.23); BASOPHILS PERCENT AUTO 2 % (0-2); EOSINOPHILS ABSOLUTE AUTO 0.62 K/mm3 (0.00-0.68); EOSINOPHILS PERCENT AUTO 6 % (0-6); Hemoglobin 14.8 g/dL (13.5-17.5); IMMATURE GRAN ABSOLUTE AUTO 0.11 K/mm3 (0.00-0.10); IMMATURE GRAN PERCENT AUTO 1 % (0-1); LYMPHOCYTES ABSOLUTE AUTO 0.55 K/mm3 (0.84-5.20); LYMPHOCYTES PERCENT AUTO 5 % (21-46); MONOCYTES ABSOLUTE AUTO 0.75 K/mm3 (0.16-1.47); MONOCYTES PERCENT AUTO 7 % (4-13); Mean Corpuscular HGB 30.5 pg (26.0-34.0); Mean Corpuscular HGB Conc 32.2 g/dL (31.5-36.5); Mean Corpuscular Volume 95 fL (80-100); NEUTROPHILS ABSOLUTE AUTO 8.16 K/mm3 (1.96-9.15); NEUTROPHILS PERCENT AUTO 79 % (41-73); RDW Coefficient Variation 14.8 % (11.7-14.2); Red Blood Cell Count 4.85 M/mm3 (4.30-5.90); White Blood Cell Count 10.34 K/mm3 (4.00-11.30)
[2021-03-05 11:07] LABS: Albumin, Blood 2.9 g/dL (3.4-5.0); Bilirubin, Total 0.5 mg/dL (0.1-1.0); Bun/Creatinine Ratio 16.3 (12.0-20.0); Calcium, Blood 8.2 mg/dL (8.5-10.1); Creatinine, Blood 1.29 mg/dL (0.60-1.20); Globulin, Blood 2.8 g/dL (2.2-4.0); Potassium, Blood 3.9 mmol/L (3.5-5.5); Total Protein, Blood 5.7 g/dL (6.4-8.2)
== END | disposition home or self-care (01) ==
LOC: LAB SHORT 10:48
PROVIDERS: Family Medicine
DX: I50.22 Chronic systolic (congestive) heart failure (principal); D47.3 Essential (hemorrhagic) thrombocythemia; E87.6 Hypokalemia
CPT/HCPCS: 80053; 83880; 85025; 85379

== ENCOUNTER 2021-06-06 12:37 | Inpatient (IN) | payer MEDICARE, OTHER ==
[~2021-06-06] VITALS: Ht 170.2 cm; Wt 99.8 kg
[~2021-06-06 12:37] MED LIST changes: -DIGOX125 MCG PO; -METO100ER PO; -SPIR25 PO
[2021-06-06 13:47] LABS: BASOPHILS ABSOLUTE AUTO 0.06 K/mm3 (0.00-0.23); BASOPHILS PERCENT AUTO 0 % (0-2); EOSINOPHILS ABSOLUTE AUTO 0.03 K/mm3 (0.00-0.68); EOSINOPHILS PERCENT AUTO 0 % (0-6); Hematocrit 47.2 % (37.0-53.0); Hemoglobin 15.8 g/dL (13.5-17.5); IMMATURE GRAN ABSOLUTE AUTO 0.61 K/mm3 (0.00-0.10); IMMATURE GRAN PERCENT AUTO 4 % (0-1); LYMPHOCYTES ABSOLUTE AUTO 0.24 K/mm3 (0.84-5.20); LYMPHOCYTES PERCENT AUTO 1 % (21-46); MONOCYTES ABSOLUTE AUTO 0.58 K/mm3 (0.16-1.47); MONOCYTES PERCENT AUTO 3 % (4-13); Mean Corpuscular HGB 30.4 pg (26.0-34.0); Mean Corpuscular HGB Conc 33.5 g/dL (31.5-36.5); Mean Corpuscular Volume 91 fL (80-100); NEUTROPHILS ABSOLUTE AUTO 15.51 K/mm3 (1.96-9.15); NEUTROPHILS PERCENT AUTO 91 % (41-73); NRBC ABSOLUTE 0.07 K/mm3 (0.00-0.02); NRBC Auto 0.4 /100 WBC (0.0-0.2); RDW Coefficient Variation 18.7 % (11.7-14.2); RDW Standard Deviation 60.1 fL (35.1-46.3); White Blood Cell Count 17.03 K/mm3 (4.00-11.30)
[2021-06-06 13:57] LABS: Platelet Count 44 K/mm3 (150-400)
[2021-06-06 14:00] LABS: Alanine Aminotransfer (ALT/SGP 54 U/L (12-78); Albumin, Blood 2.5 g/dL (3.4-5.0); Albumin/Globulin Ratio 0.9 (0.8-1.8); Alk Phos 49 U/L (50-136); Anion Gap 9 mmol/L (6-16); Aspartate Aminotrans (AST/SGOT 33 U/L (12-37); Bilirubin, Total 1.3 mg/dL (0.1-1.0); Blood Urea Nitrogen 51 mg/dL (8-24); Bun/Creatinine Ratio 54.2 (12.0-20.0); CO2, Blood 30 mmol/L (21-32); Calcium, Blood 8.3 mg/dL (8.5-10.1); Chloride, Blood 105 mmol/L (98-108); Creatinine, Blood 0.94 mg/dL (0.60-1.20); Globulin, Blood 2.8 g/dL (2.2-4.0); Glomerular Filtration Rate >60 (60-); Glucose, Blood 106 mg/dL (70-99); Potassium, Blood 4.2 mmol/L (3.5-5.5); Sodium, Blood 144 mmol/L (136-145); Total Protein, Blood 5.3 g/dL (6.4-8.2)
[2021-06-06 14:02] LABS: CPK Creatine Kinase 225 U/L (39-308)
[2021-06-06 14:24] LABS: Source, Urine Clean Catch
[2021-06-06 14:31] LABS: Appearance, Urine Clear (Clear); Bilirubin, Urine Neg (Neg); Blood, Urine 1+ (Neg); Color, Urine Yellow (P-Yellow); Glucose Qualitative, Urine Neg (Neg); Ketones, Urine Neg (Neg); Leukocyte Esterase, Urine Neg (Neg); Nitrite, Urine Neg (Neg); Protein, Urine 1+ (Neg); Urobilinogen, Urine NORM (Normal)
[2021-06-06 14:57] LABS: Bacteria Few /hpf; Red Blood Cells, Urine 0-2 /hpf (0-2); Squamous Epithelial Cells Rare /hpf (Few); White Blood Cells, Urine 0-2 /hpf (0-5)
[2021-06-06] MEDS ORDERED: PROPRANOLOL HC120 MG PO (18:23)
[2021-06-06] MEDS ORDERED: METO25 PO (18:24)
[2021-06-06] MEDS ORDERED: PRED FORTE5 M1 BOTHEYES (18:25)
[2021-06-06] MEDS ORDERED: Floxin10 ML (18:25)
[2021-06-06] MEDS ORDERED: DIGOX125 MCG PO (18:25)
[2021-06-06] MEDS ORDERED: POTA10T PO (18:26)
[2021-06-06] MEDS ORDERED: SPIR25 PO (18:26)
[2021-06-06] MEDS ORDERED: DEXA4 PO (18:27)
[2021-06-06 18:35] LABS: Digoxin (Lanoxin) 0.56 ug/mL (0.80-2.00)
--- NOTE | 2021-06-06 19:32 | NUR ---
ARRIVAL TO UNIT: PATIENT ARRIVED TO UNIT VIA STRETCHER. PATIENT ALERT TO SELF AND LOCATION. PATIENT ABLE TO FOLLOW DIRECTIONS WITHIN ABILITIES. PATIENT IS VERY WEAK AND CANNOT ROLL TO THE SIDE INDEPENDENTLY. PATIENT REPORTS HE IS VERY THIRSTY. PATIENT ABLE TO EXPLAIN WHY HE IS IN THE HOSPITAL, BUT UNABLE TO REMEMBER THE TIMELINE. IV FLUIDS RUNNING INTO IV IN RIGHT AC. PATIENT'S SHIRT IS SATURATED WITH URINE. PERICARE PROVIDED, SKIN CARE COMPLETED, AND CLEAN GOWN PLACED ON THE PATIENT. PATIENT SITTING UP IN BED DRINKING WATER. PATIENT SWALLOWING WITHOUT COUGHING OR DIFFICULTY NOTED.
[2021-06-06] MEDS ORDERED: FURO40 PO ×2 (20:10→20:11)
[2021-06-06] MEDS ORDERED: ELIQUIS5 M2 PO (20:12)
[2021-06-06] MEDS ORDERED: METO25ER PO (20:15)
--- NOTE | 2021-06-07 04:27 | NUR ---
SHIFT SUMMARY ADMITTED FOR FALL RESULTING IN DEHYDRATION/LACTIC ACIDOSIS/WEAKNESS. FULL CODE. TELEMETRY: AFIB @ 124 BPM. LR INFUSING ORDERED. HE IS ON ELIQUIS AT HOME. HE CRIES OUT STATING SEVERE PAIN WHEN REPOSITIONED OR WITH ANY MOVEMENT, MAINLY IN HIS BACK. HX OF DVT AND PE.
[2021-06-07 05:10] LABS: Hematocrit 41.7 % (37.0-53.0); Hemoglobin 13.5 g/dL (13.5-17.5); Mean Corpuscular HGB 30.1 pg (26.0-34.0); Mean Corpuscular HGB Conc 32.4 g/dL (31.5-36.5); Mean Corpuscular Volume 93 fL (80-100); Mean Platelet Volume 11.1 fL (9.1-12.4); NRBC ABSOLUTE 0.08 K/mm3 (0.00-0.02); NRBC Auto 0.7 /100 WBC (0.0-0.2); RDW Coefficient Variation 18.7 % (11.7-14.2); RDW Standard Deviation 62.8 fL (35.1-46.3); Red Blood Cell Count 4.48 M/mm3 (4.30-5.90); White Blood Cell Count 11.86 K/mm3 (4.00-11.30)
[2021-06-07 05:22] LABS: Platelet Count 29 K/mm3 (150-400)
[2021-06-07 06:14] LABS: Anion Gap 9 mmol/L (6-16); Blood Urea Nitrogen 33 mg/dL (8-24); Bun/Creatinine Ratio 43.9 (12.0-20.0); CO2, Blood 25 mmol/L (21-32); Calcium, Blood 7.5 mg/dL (8.5-10.1); Chloride, Blood 108 mmol/L (98-108); Creatinine, Blood 0.75 mg/dL (0.60-1.20); Glomerular Filtration Rate >60 (60-); Glucose, Blood 78 mg/dL (70-99); Potassium, Blood 3.7 mmol/L (3.5-5.5); Sodium, Blood 142 mmol/L (136-145)
[2021-06-07 15:37] LABS: Adenovirus F 40/41 Not Detected (NOT DETECT); Astrovirus Not Detected (NOT DETECT); Campylobacter Sp Not Detected (NOT DETECT); Cryptosporidium Not Detected (NOT DETECT); Cyclospora Cayetanensis Not Detected (NOT DETECT); E. Coli O157 Not Detected (NOT DETECT); Entamoeba Histolytica Not Detected (NOT DETECT); Enteroaggregative E. coli-EAEC Not Detected (NOT DETECT); Enteropathogenic E. coli-EPEC Not Detected (NOT DETECT); Enterotoxigenic E. coli-ETEC Not Detected (NOT DETECT); Giardia Lamblia Not Detected (NOT DETECT); Norovirus GI/GII Not Detected (NOT DETECT); Plesiomonas Shigelloides Not Detected (NOT DETECT); Rotavirus A Not Detected (NOT DETECT); Salmonella Sp Not Detected (NOT DETECT); Sapovirus Not Detected (NOT DETECT); Shiga Toxin-prod E. coli-STEC Not Detected (NOT DETECT); Shigella/Enteroin E. coli-EIEC Not Detected (NOT DETECT); Vibrio Cholerae Not Detected (NOT DETECT); Vibrio Sp Not Detected (NOT DETECT); Yersinia Enterocolitica Not Detected (NOT DETECT)
--- NOTE | 2021-06-07 19:19 | NUR ---
SHIFT SUMMARY A&O X4. BEDREST WITH 2PA FOR REPOSITIONING. YELLS OUT IN PAIN DURING REPOSITIONING BUT REFUSED PAIN MEDICATION WHEN OFFERED. VERY POOR APPETITE. PATIENT HAVING INCONT OF BOWEL WITH MULTIPLE DIARRHEA BM. STOOL SAMPLE SENT TO LAB. RECEIVING IV FLUIDS WITH POTASSIUM. WORKED WITH PT AND OT TODAY. MULTIPLE WOUNDS PRESENT FROM FALL AT HOME. REPORT GIVEN TO ONCOMING RN.
--- NOTE | 2021-06-08 04:51 | NUR ---
SHIFT SUMMARY ADMITTED FOR LACTIC ACIDOSIS/WEAKNESS/DEHYDRATION. FULL CODE. FOUND DOWN IN HIS HOME, POSSIBLY FOR ONE WEEK. NS W/KCL INFUSING ORDERED. BEDREST, ATTENDS IN PLACE. HE HAS BEEN EXPERIENCING LOOSE STOOLS. PLATELET COUNT HAS BEEN CRITICALLY LOW PREVIOUSLY, AWAITING MORNING LABS. TELEMETRY: AFIB @ 93 BPM. HE IS ON ELLIQUIS. LABILE MOODS.
[2021-06-08 05:17] LABS: Hematocrit 38.5 % (37.0-53.0); Hemoglobin 12.6 g/dL (13.5-17.5); Mean Corpuscular HGB 30.4 pg (26.0-34.0); Mean Corpuscular HGB Conc 32.7 g/dL (31.5-36.5); Mean Corpuscular Volume 93 fL (80-100); NRBC ABSOLUTE 0.05 K/mm3 (0.00-0.02); NRBC Auto 0.5 /100 WBC (0.0-0.2); RDW Coefficient Variation 18.5 % (11.7-14.2); RDW Standard Deviation 61.8 fL (35.1-46.3); Red Blood Cell Count 4.15 M/mm3 (4.30-5.90)
[2021-06-08 05:23] LABS: Anion Gap 6 mmol/L (6-16); Blood Urea Nitrogen 23 mg/dL (8-24); Bun/Creatinine Ratio 34.1 (12.0-20.0); CO2, Blood 25 mmol/L (21-32); Calcium, Blood 7.4 mg/dL (8.5-10.1); Chloride, Blood 107 mmol/L (98-108); Creatinine, Blood 0.68 mg/dL (0.60-1.20); Glomerular Filtration Rate >60 (60-); Glucose, Blood 128 mg/dL (70-99); Phosphorus, Blood 3.2 mg/dL (2.5-4.9); Potassium, Blood 4.5 mmol/L (3.5-5.5); Sodium, Blood 138 mmol/L (136-145)
[2021-06-08 05:57] LABS: Platelet Count 18 K/mm3 (150-400)
--- NOTE | 2021-06-08 20:00 | NUR ---
SHIFT SUMMARY PATIENT A&O. WORKED WITH PT TODAY. SMALL IMPROVEMENT ABLE TO STAND WITH 2PA MAX ASSIST. STILL HAVING DIARRHEA BUT BECOME THICKER IN CONSISTENCY. BUTTOCK AND GRION RED AND CREAM APPLIED. PATIENTS MOUTH IS VERY SORE AND PAINFUL. DIET CHANGED TO FULL LIQUID DIET AND COOL LIQUIDS AND POPSICLES OFFERED T/O SHIFT. LEFT FLANK PRESSURE SORE SKIN PEELING. MEPILEX DRESSING APPLIED. RECEIVING IV FLUIDS WITH K+. REPORT GIVEN TO ONCOMING RN.
--- NOTE | 2021-06-09 05:35 | NUR ---
STORE COORDINATOR SUMMARY ALERT AND ORIENTED. INCONT OF FECES A FEW TIMES THROUGH OUT NOCT, ZULMA CARE AND LINEN CHANGED INDICATED. IV FLUID/POTASSIUM INFUSING AT 100 ML/HR. CALL LIGHT IN REACH. HAS BEEN RESTING QUIETLY OTHERWISE
[2021-06-09 05:49] LABS: BASOPHILS ABSOLUTE AUTO 0.01 K/mm3 (0.00-0.23); BASOPHILS PERCENT AUTO 0 % (0-2); EOSINOPHILS PERCENT AUTO 0 % (0-6); Hematocrit 36.3 % (37.0-53.0); Hemoglobin 12.2 g/dL (13.5-17.5); IMMATURE GRAN ABSOLUTE AUTO 0.25 K/mm3 (0.00-0.10); IMMATURE GRAN PERCENT AUTO 2 % (0-1); LYMPHOCYTES ABSOLUTE AUTO 0.19 K/mm3 (0.84-5.20); LYMPHOCYTES PERCENT AUTO 2 % (21-46); MONOCYTES ABSOLUTE AUTO 0.62 K/mm3 (0.16-1.47); MONOCYTES PERCENT AUTO 5 % (4-13); Mean Corpuscular HGB Conc 33.6 g/dL (31.5-36.5); Mean Corpuscular Volume 92 fL (80-100); NEUTROPHILS ABSOLUTE AUTO 11.48 K/mm3 (1.96-9.15); NEUTROPHILS PERCENT AUTO 92 % (41-73); NRBC ABSOLUTE 0.02 K/mm3 (0.00-0.02); NRBC Auto 0.2 /100 WBC (0.0-0.2); RDW Coefficient Variation 18.5 % (11.7-14.2); RDW Standard Deviation 61.7 fL (35.1-46.3); Red Blood Cell Count 3.94 M/mm3 (4.30-5.90); White Blood Cell Count 12.55 K/mm3 (4.00-11.30)
[2021-06-09 06:02] LABS: Anion Gap 6 mmol/L (6-16); Blood Urea Nitrogen 19 mg/dL (8-24); CO2, Blood 25 mmol/L (21-32); Calcium, Blood 7.7 mg/dL (8.5-10.1); Chloride, Blood 109 mmol/L (98-108); Creatinine, Blood 0.61 mg/dL (0.60-1.20); Glomerular Filtration Rate >60 (60-); Glucose, Blood 145 mg/dL (70-99); Magnesium, Blood 2.3 mg/dL (1.6-2.4); Phosphorus, Blood 2.3 mg/dL (2.5-4.9); Potassium, Blood 4.5 mmol/L (3.5-5.5); Sodium, Blood 140 mmol/L (136-145)
[2021-06-09 06:12] LABS: Platelet Count 27 K/mm3 (150-400)
--- NOTE | 2021-06-09 16:45 | NUR ---
DAY SHIFT SUMMARY 75 YR OLD MALE ADMITTED D/T AFIB WITH RVR. TELE READING AFIB AT 95 PER DEVELOPMENT ASSISTANT. A/O X4, EMOTIONAL. WAITING SNF PLACEMENT. SORES IN MOUTH, HURRICANE SPRAY ORDERED. FULL LIQUID DIET AT THIS TIME. CALL LIGHT WITHIN REACH AND ABLE TO CALL APPROPRIATELY.
--- NOTE | 2021-06-10 03:13 | NUR ---
MANAGER REPORTING SUMMARY LESS ANXIOUS APPEARING THIS HS THAN NOTED LAST 24 HRS. VOICED NO DIARRHEA AND WAS FEELING LIKE HE COULD GET UP AND WALK OUT OF THE HOSPITAL FEELING BETTER. IVF OF NS WITH POTASSIUM CONTINUES TO INFUSE AT 100 ML/HR ORDERED. CALL LIGHT IN REACH. RESTING QUIETLY. NO NOTED S/S ACUTE DISTRESS.
[2021-06-10 05:35] LABS: BASOPHILS ABSOLUTE AUTO 0.03 K/mm3 (0.00-0.23); BASOPHILS PERCENT AUTO 0 % (0-2); EOSINOPHILS PERCENT AUTO 0 % (0-6); Hematocrit 36.9 % (37.0-53.0); Hemoglobin 12.2 g/dL (13.5-17.5); IMMATURE GRAN ABSOLUTE AUTO 0.18 K/mm3 (0.00-0.10); IMMATURE GRAN PERCENT AUTO 1 % (0-1); LYMPHOCYTES ABSOLUTE AUTO 0.22 K/mm3 (0.84-5.20); LYMPHOCYTES PERCENT AUTO 2 % (21-46); MONOCYTES ABSOLUTE AUTO 0.73 K/mm3 (0.16-1.47); MONOCYTES PERCENT AUTO 5 % (4-13); Mean Corpuscular HGB 30.6 pg (26.0-34.0); Mean Corpuscular HGB Conc 33.1 g/dL (31.5-36.5); Mean Corpuscular Volume 93 fL (80-100); Mean Platelet Volume 11.1 fL (9.1-12.4); NEUTROPHILS ABSOLUTE AUTO 12.82 K/mm3 (1.96-9.15); NEUTROPHILS PERCENT AUTO 92 % (41-73); NRBC ABSOLUTE 0.03 K/mm3 (0.00-0.02); NRBC Auto 0.2 /100 WBC (0.0-0.2); Platelet Count 52 K/mm3 (150-400); RDW Coefficient Variation 18.6 % (11.7-14.2); RDW Standard Deviation 62.5 fL (35.1-46.3); Red Blood Cell Count 3.99 M/mm3 (4.30-5.90); White Blood Cell Count 13.98 K/mm3 (4.00-11.30)
[2021-06-10 05:59] LABS: Anion Gap 5 mmol/L (6-16); Blood Urea Nitrogen 17 mg/dL (8-24); Bun/Creatinine Ratio 28.5 (12.0-20.0); CO2, Blood 27 mmol/L (21-32); Calcium, Blood 7.7 mg/dL (8.5-10.1); Chloride, Blood 109 mmol/L (98-108); Glomerular Filtration Rate >60 (60-); Glucose, Blood 116 mg/dL (70-99); Phosphorus, Blood 2.3 mg/dL (2.5-4.9); Potassium, Blood 4.6 mmol/L (3.5-5.5); Sodium, Blood 141 mmol/L (136-145)
--- NOTE | 2021-06-10 16:22 | NUR ---
DAY SHIFT SUMMARY 75 YR OLD MALE WAITING SNF PLACEMENT. A/O X3-4. MAX ASSIST. PT ON RA AND FULL LIQUID DIET. NO IV ORDER PER MD. CALL LIGHT WITHIN REACH AND ABLE TO CALL APPROPRIATELY.
--- NOTE | 2021-06-11 01:15 | NUR ---
HAIR CLIPPER POWER DOCUMENTATION REVIEWED, I AGREE WITH DOCUMENTATION
--- NOTE | 2021-06-11 04:45 | NUR ---
TRUCKLOAD CHECKER SUMMARY HAS BEEN RESTING QUIETLY WITH FEW INTERRUPTIONS SINCE HS, NO VOICED INCONT OF BOWEL. TOLERATING PO FLUIDS WELL. VOICED HE WAS WILLING TO BE DISCHARGED TO A FACILITY FOR FOLLOW UP CARE RATHER THAN BEING SENT HOME. CALL LIGHT IN REACH. NO NOTED ACUTE DISTRESS OF THIS WRITING.
--- NOTE | 2021-06-11 18:48 | NUR ---
SHIFT SUMMARY PT A/O X3; PLEASANT AND COOPERATIVE WITH CARE. C/O PAIN IN SHOULDERS AND ELBOW, TREATED PER EMR. PT TO DC TO [place] TOMORROW. ONE INSTANCE OF INCONTINENT BM THIS SHIFT. WORKED WITH PHYSICAL AND OCCUPATIONAL THERAPY. CONTINUES TO C/O WEAKNESS. VSS.
--- NOTE | 2021-06-12 03:38 | NUR ---
PHYSICIAN COMMUNICATION CONTACTED AGRICULTURAL EXTENSION OFFICER PHYSICIAN, DR PRADO, TO NOTIFY HER THAT THE PATIENT'S HEART RATE WAS AFIB SUSTAINING 120'S-130'S AND THAT HE WAS REPORTING GENERALIZED 10/10 PAIN FOR WHICH TYLENOL WAS INEFFECTIVE. DR PRADO ORDERED 5 MG METOPROLOL IV NOW AND 50 MG TRAMADOL PO Q6 NEEDED.
--- NOTE | 2021-06-12 04:06 | NUR ---
PHYSICIAN COMMUNICATION CALLED DR PRADO BACK TO NOTIFY HER THAT THE PATIENT DOESN'T HAVE IV ACCESS AND WOULD REQUIRE ULTRASOUND IV PLACEMENT. ALSO REPORTED THAT THE PATIENT IS PLANNING TO DISCHARGE TO [facility] TODAY AND THAT HIS HEART RATE HAS BEEN SLOWLY TRENDING DOWN ON IT'S OWN. ASKED IF SHE WOULD LIKE THE PATIENT'S 0900 PO METOPROLOL TO BE GIVEN EARLY INSTEAD. DR PRADO SAID TO HOLD OFF ON THE IV FOR NOW AND TO GIVE THE ORAL METOPROLOL.
--- NOTE | 2021-06-12 05:41 | NUR ---
PHYSICIAN COMMUNICATION CONTACTED DR PRADO TO NOTIFY HER THAT THE CABLE ASSEMBLER AND SWAGER REPORTED THAT THE PATIENT'S HEART RATE HAD BEEN SUSTAINING IN THE 140'S TO 150'S AND TOUCHED UP TO THE 180'S. WHEN ON THE PHONE WITH DR PRADO TELE REPORTED THE PATIENT WAS IN THE 120'S. DR PRADO SAID TO INSERT AND IV IN THE PATIENT AND GIVE THE IV METOPROLOL IF THE HEART RATE IS >120
--- NOTE | 2021-06-12 06:48 | NUR ---
SHIFT SUMMARY PATIENT ALERT AND ORIENTED. MEDICATED PER EMAR FOR PAIN. HAD IV PLACED IN ORDER TO TREAT PATIENT FOR TACHYCARDIA. HAD NO COMPLAINTS OF SHORTNESS OF BREATH. BED IN LOWEST POSITION WITH WHEELS LOCKED AND ALARM ON. CALL LIGHT WITHIN REACH. REPORT GIVEN TO ONCOMING RN.
[2021-06-12] MEDS ORDERED: HURRICAINE ONE1 EACH MT (12:00)
[2021-06-12] MEDS ORDERED: BANATROL PLUS1 EAC1 PO (12:00)
[2021-06-12] MEDS ORDERED: LOPE2C PO (12:00)
[2021-06-12] MEDS ORDERED: ACET325 PO (12:00)
[2021-06-12] MEDS ORDERED: MULVITA PO (12:01)
[2021-06-12] MEDS ORDERED: TRAM50 PO (12:01)
[2021-06-12] MEDS ORDERED: Vitamin B-650 MG PO (12:01)
[2021-06-12 12:24] LABS: Influenza A, PCR NEGATIVE (NEGATIVE); Influenza B, PCR NEGATIVE (NEGATIVE); Resp Syncytial Virus, PCR NEGATIVE (NEGATIVE); SARS-Cov-2 (COVID-19) PCR, MMC NEGATIVE (NEGATIVE)
--- NOTE | 2021-06-12 14:41 | NUR ---
REPORT CALLED TO RENATO AT [facility], IV DC'D BY HOME WEATHERIZING WORKER. [facility] LAPPING MACHINE OPERATOR AT BEDSIDE FOR DISCHARHGE AND PLANS TO MEET AT [facility] TO GET SETTLED. PT DC'D VIA CARMEL AT 1435.
== END 2021-06-12 14:32 | DRG 641 ==
LOC: ER 12:37 → MEDS 12:38
PROVIDERS: Emergency Medicine; Internal Medicine; Student in an Organized Health Care Education/Training Program; ADMIT Internal Medicine
DX: E86.0 Dehydration (principal); D69.3 Immune thrombocytopenic purpura; I48.20 Chronic atrial fibrillation, unspecified; I50.32 Chronic diastolic (congestive) heart failure; R65.10 Systemic inflammatory response syndrome (SIRS) of non-infectious origin without acute organ dysfunction; D72.829 Elevated white blood cell count, unspecified; E87.2 Acidosis; K13.79 Other lesions of oral mucosa; R15.9 Full incontinence of feces; R19.7 Diarrhea, unspecified; E66.9 Obesity, unspecified; G47.33 Obstructive sleep apnea (adult) (pediatric); Z96.651 Presence of right artificial knee joint; I11.0 Hypertensive heart disease with heart failure; Z79.899 Other long term (current) drug therapy; Z86.711 Personal history of pulmonary embolism; Z85.72 Personal history of non-Hodgkin lymphomas; Z98.890 Other specified postprocedural states; Z90.49 Acquired absence of other specified parts of digestive tract; Z90.81 Acquired absence of spleen; Z79.01 Long term (current) use of anticoagulants; Z86.718 Personal history of other venous thrombosis and embolism; Z91.14 Patient's other noncompliance with medication regimen
CPT/HCPCS: 0241U; 36415; 51701; 71045; 80048; 80053; 80069; 80162; 81001; 82550; 83605; 83735; 85025; 85027; 87507; 93005; 93010; 97110; 97162; 97166; 97530; 99285-25; A9270; G0378; J3480; J7030; J7120

== ENCOUNTER 2021-06-15 10:17 | Inpatient (IN) | payer MEDICARE, OTHER ==
[~2021-06-15] VITALS: Ht 180.3 cm; Wt 104.1 kg
[~2021-06-15 10:17] MED LIST changes: +ACET325 PO; +BANATROL PLUS1 EAC1 PO; +DIGOX125 MCG PO; +ELIQUIS5 M2 PO; +Floxin10 ML; +HURRICAINE ONE1 EACH MT; +LOPE2C PO; +METO25ER PO; +MULVITA PO; +PRED FORTE5 M1 BOTHEYES; +PROPRANOLOL HC120 MG PO; +SPIR25 PO; +TRAM50 PO; +Vitamin B-650 MG PO
[2021-06-15 12:59] LABS: Hematocrit 38.4 % (37.0-53.0); Hemoglobin 12.7 g/dL (13.5-17.5); Mean Corpuscular HGB 30.4 pg (26.0-34.0); Mean Corpuscular HGB Conc 33.1 g/dL (31.5-36.5); Mean Corpuscular Volume 92 fL (80-100); NRBC ABSOLUTE 0.11 K/mm3 (0.00-0.02); NRBC Auto 0.6 /100 WBC (0.0-0.2); RDW Coefficient Variation 19.5 % (11.7-14.2); Red Blood Cell Count 4.18 M/mm3 (4.30-5.90); White Blood Cell Count 19.65 K/mm3 (4.00-11.30)
[2021-06-15 13:07] LABS: Platelet Count 42 K/mm3 (150-400)
[2021-06-15 13:20] LABS: BAND PERCENT MAN 19 % (0-8); BASOPHILS PERCENT MAN 0 % (0-2); EOSINOPHILS PERCENT MAN 0 % (0-6); LYMPHOCYTES ABSOLUTE MAN 0.39 K/mm3 (0.84-5.20); LYMPHOCYTES PERCENT MAN 2 % (21-46); MONOCYTES ABSOLUTE MAN 0.19 K/mm3 (0.16-1.47); MONOCYTES PERCENT MAN 1 % (4-13); NEUTROPHILS ABSOLUTE MAN 19.06 K/mm3 (1.96-9.15); SEG NEUTROPHILS PERCENT MAN 78 % (41-73); TOTAL CELLS COUNTED 100
[2021-06-15 13:29] LABS: Alanine Aminotransfer (ALT/SGP 102 U/L (12-78); Albumin, Blood 1.5 g/dL (3.4-5.0); Albumin/Globulin Ratio 0.4 (0.8-1.8); Alk Phos 94 U/L (50-136); Anion Gap 10 mmol/L (6-16); Aspartate Aminotrans (AST/SGOT 125 U/L (12-37); Bilirubin, Total 1.3 mg/dL (0.1-1.0); Blood Urea Nitrogen 54 mg/dL (8-24); Bun/Creatinine Ratio 31.4 (12.0-20.0); CO2, Blood 28 mmol/L (21-32); Calcium, Blood 8.3 mg/dL (8.5-10.1); Chloride, Blood 98 mmol/L (98-108); Creatinine, Blood 1.72 mg/dL (0.60-1.20); Digoxin (Lanoxin) 1.13 ug/mL (0.80-2.00); Globulin, Blood 3.8 g/dL (2.2-4.0); Glomerular Filtration Rate 39 (60-); Glucose, Blood 172 mg/dL (70-99); Sodium, Blood 136 mmol/L (136-145); Total Protein, Blood 5.3 g/dL (6.4-8.2)
[2021-06-15 15:17] LABS: Creatine Kinase MB 1.1 ng/mL (0.0-3.6); Creatine Kinase MB Index 0.3 (0.0-4.0)
[2021-06-15 15:21] LABS: Base Excess Venous 4.6 mmol/L; Bicarbonate Venous 27.4 mmol/L (24.0-30.0); PCO2 Venous 45.3 mmHg (38-42); pH Blood Venous 7.42 (7.34-7.37)
[2021-06-15 17:05] LABS: Influenza A, PCR NEGATIVE (NEGATIVE); Influenza B, PCR NEGATIVE (NEGATIVE); Resp Syncytial Virus, PCR NEGATIVE (NEGATIVE); SARS-Cov-2 (COVID-19) PCR, MMC NEGATIVE (NEGATIVE)
[2021-06-15 17:21] LABS: Hemoglobin 9.9 g/dL (13.5-17.5)
--- NOTE | 2021-06-15 19:17 | NUR ---
Extensive conversation with family about plan of care and recusitation choices. Thei contract technical writer has worked with this family since 2016. Had sons relay what he has been through the past few years. Discussed prognosis and having a life long illness. Discussed code status and intubation and withdrawl of care. discussed limited treatment and supportive treatment and when to accept hospice. Focus was mostly on cpr and intubation book hard choice fo loving families was given to pt sons. We discussed his anthony and his wishes and explored what he would say. Will follow ups with family tomorrow.
--- NOTE | 2021-06-15 20:00 | NUR ---
ASSUMED PT CARE AT 1915 PT LYING IN BED WITH FAMILY AT BEDSIDE. PALLIATIVE CARE IN TO SEE AND DISCUSS PT'S PROGNOSIS AND CODE STATUS. FAMILY UNDECIDED AT THIS TIME. PT IS RESPONSIVE TO VERBAL STIMULI. ANSWERS YES/NO QUESTIONS, BUT THEN QUICKLY FALLS BACK TO SLEEP. DENIES PAIN OR BEING UNCOMFORTABLE. CENTRAL LINE NOTED TO LEFT IJ WITH NS INFUSING AT 125ML/HR. PT HAS SCATTERED PURPURA AND ECCHYMOSIS; SEE CHART FOR PHOTOS. DR. WAGNER IN TO SEE PT AT START OF SHIFT; DISCUSSED PLAN OF CARE WITH FAMILY. SEE SHIFT SUMMARY FOR FURTHER DETAILS
[2021-06-15 21:06] LABS: Hematocrit 30.5 % (37.0-53.0); Hemoglobin 10.3 g/dL (13.5-17.5)
--- NOTE | 2021-06-15 21:13 | NUR ---
CODE STATUS CHANGE FAMILY BROUGHT UP QUESTIONS REGARDING CODE STATUS AND WHAT EACH OF THE TERMS MEANT. EDUCATED ON ALL ASPECTS OF A CODE STATUS, INCLUDING: INTUBATION, MEDICATIONS, DEBFIBRILLATION, AND CPR. FAMILY DECIDED TOGETHER TO MAKE A LIMITED CODE WITH INTUBATION AND MEDICATIONS ONLY. CALL MADE TO DR. HENSON WITH ORDERS TO CHANGE CODE STATUS FROM FULL TO LIMITED.
--- NOTE | 2021-06-15 21:40 | NUR ---
PAIN MANAGEMENT CALL OUT TO DR. HENSON D/T PT MOANING OUT IN PAIN WHILE ATTEMPTING TO REPOSITION. PT UNABLE TO DESCRIBE PAIN OR SAY WHERE IT'S AT; ONLY THAT IT "HURTS". IT APPEARS PT TAKES TRAMADOL AT HOME; THEREFORE, ORDERS OBTAINED FOR FENTANYL 12.5 MCG Q2PRN.
[2021-06-16 00:37] LABS: Hemoglobin 10.2 g/dL (13.5-17.5)
[2021-06-16 04:19] LABS: Hematocrit 30.3 % (37.0-53.0); Hemoglobin 10.2 g/dL (13.5-17.5); Mean Corpuscular HGB 30.8 pg (26.0-34.0); Mean Corpuscular HGB Conc 33.7 g/dL (31.5-36.5); Mean Corpuscular Volume 92 fL (80-100); Mean Platelet Volume 12.5 fL (9.1-12.4); NRBC ABSOLUTE 0.06 K/mm3 (0.00-0.02); NRBC Auto 0.4 /100 WBC (0.0-0.2); RDW Coefficient Variation 19.4 % (11.7-14.2); RDW Standard Deviation 63.9 fL (35.1-46.3); Red Blood Cell Count 3.31 M/mm3 (4.30-5.90); White Blood Cell Count 15.12 K/mm3 (4.00-11.30)
[2021-06-16 04:29] LABS: Platelet Count 37 K/mm3 (150-400)
[2021-06-16 04:48] LABS: Alanine Aminotransfer (ALT/SGP 75 U/L (12-78); Albumin, Blood 2.1 g/dL (3.4-5.0); Albumin/Globulin Ratio 0.8 (0.8-1.8); Alk Phos 73 U/L (50-136); Anion Gap 7 mmol/L (6-16); Aspartate Aminotrans (AST/SGOT 71 U/L (12-37); Bilirubin, Total 1.3 mg/dL (0.1-1.0); Blood Urea Nitrogen 41 mg/dL (8-24); Bun/Creatinine Ratio 38.7 (12.0-20.0); CO2, Blood 30 mmol/L (21-32); Calcium, Blood 7.9 mg/dL (8.5-10.1); Chloride, Blood 108 mmol/L (98-108); Creatinine, Blood 1.06 mg/dL (0.60-1.20); Globulin, Blood 2.8 g/dL (2.2-4.0); Glomerular Filtration Rate >60 (60-); Glucose, Blood 161 mg/dL (70-99); Magnesium, Blood 2.2 mg/dL (1.6-2.4); Sodium, Blood 145 mmol/L (136-145); Total Protein, Blood 4.9 g/dL (6.4-8.2)
[2021-06-16 04:54] LABS: BAND PERCENT MAN 21 % (0-8); BASOPHILS PERCENT MAN 0 % (0-2); EOSINOPHILS PERCENT MAN 0 % (0-6); LYMPHOCYTES ABSOLUTE MAN 0.15 K/mm3 (0.84-5.20); LYMPHOCYTES PERCENT MAN 1 % (21-46); METAMYELOCYTE ABSOLUTE MAN 0.15 K/mm3 (0.00-0.00); METAMYELOCYTE PERCENT MAN 1 % (0-0); MONOCYTES PERCENT MAN 2 % (4-13); NEUTROPHILS ABSOLUTE MAN 14.51 K/mm3 (1.96-9.15); SEG NEUTROPHILS PERCENT MAN 75 % (41-73); TOTAL CELLS COUNTED 100
--- NOTE | 2021-06-16 06:12 | NUR ---
END OF SHIFT SUMMARY NO SIGNIFICANT CHANGES THIS SHIFT. PT REMAINS BEDBOUND REQUIRING ASSIST WITH REPOSITIONING. PT MORE ALERT AND ABLE TO SPEAK IN MORE COMPLETE SENTENCES. ORAL CARES PERFORMED EVERY 3-4 HOURS. PT UPSET HE CAN'T HAVE WATER. EDUCATED REGARDING HIGH ASPRIATION RISK D/T WEAK COUGH. PT UNABLE TO COUGH SPUTUM UP HIGH ENOUGH TO EXPECTORATE; PT REQUIRED DEEP SUBGLOTTIC SUCTIONING WITH THICK BROWN/YELLOW SPUTUM NOTED TO SUCTION TUBING. PT HAS REMAINED AFIB/FLUTTER WITH RATE 100-110'S. LEVOPHED AT 3MCG/MIN WITH SBP'S 90-100'S. LUNG SOUNDS ARE COARSE TO BILATERAL UPPER LOBES, WITH INSPIRATORY CRACKLES NOTED TO BILATERAL LOWER LOBES. PT HAS BEEN ON ROOM AIR ALL NIGHT WITH OXYGEN SATURATIONS >90%. DIEHL CATHETER CONTINUES TO DRAIN BLOOD TINGED URINE WITH CLOTS AND SEDITMENT NOTED. PT MEDICATED X2 FOR PAIN D/T MOANING/GROANING; PT UNABLE TO LOCATE PAIN OR DESCRIBE PAIN. NS INFUSING VIA CENTRAL LINE TO RIGHT IJ AT 125ML/HR. POTASSIUM REPLACEMENT ALSO INFUSING AT THIS TIME. WILL CONTINUE TO MONITOR UNTIL REPORT IS HANDED OFF TO ONCOMING RN.
--- NOTE | 2021-06-16 07:58 | NUR ---
ALERT AND ORIENTED TODAY, MAKES NEEDS KNOWN, UNABLE TO CLEAR THROUT WITH COUGH, ORAL SUCTION, TOOTHETE TOTAL ASSIST, REPOSITIONED, CALL LIGHT WITH IN REACH, LEVOPHED INFUSING 3, WCTM
--- NOTE | 2021-06-16 10:38 | NUR ---
DR BERNARD SOTO ON PATIENT NOW
--- NOTE | 2021-06-16 12:20 | NUR ---
dr zaldivar rounded, reported lab results, and patient failed bedside swallow eval, st eval and treat ordered, patient is not clearing oral secretions, very weak swallow, upper airway coarse and rhonci through out
--- NOTE | 2021-06-16 13:33 | NUR ---
friend/neighbor in visiting with patient
--- NOTE | 2021-06-16 14:39 | NUR ---
GISELA XWIFE AT BEDSIDE, PATIENT AWAKE AND INTERACTING
--- NOTE | 2021-06-16 16:06 | NUR ---
SON IN AT BEDSIDE VISITING
--- NOTE | 2021-06-16 17:09 | NUR ---
PATIENT MORE ALERT AND ORIENTED TODAY, RESPONDS APPROPIATELY, MAKES NEEDS KNOWN, TEMP 99.3, TEMP DIEHL TO GRAVITY, PINK URINE, HYPOACTIVE BT. FAILED BEDSIDE SWALLOW EVAL, ORDER FOR ST IN. REPOSITIONED EVERY 2 HOURS, LEFT AND RIGHT ARM RED AND TRACE EDEMA. DAYAMI FEET EDEMA IMPROVED, FAINT PULSES, DENIES CP. HEART RATE 80-100, STOPPED LEVOPHED AT 1706, BP 114/68. HAD A BREAK FROM SCDS TODAY. DR WAGNER TALKED ABOUT POSSIBLE DOBHOF PLACEMENT TOMORROW. PATIENT NOT TOLERATING SUCTION WELL, ENCOURAGING COUGH, PATIENTS COUGH HAS IMPROVED THROUGH THE DAY, ORAL CARE EVERY 2 HOUR, VERY DRY MOUTH AND LIPS. PATIENT AND FAILY EDUCATED MULTIPLE TIMES ABOUT ORAL CARE AND THE NEED FOR NPO. PATIENT IS UNABLE TO MANAGE HIS OWN SECRETIONS. K+ REPLACED TODAY, ESTRADA ORO, MEDICATED FOR PAIN 1715 WITH FENTANYL. WILL RELAY TO PM BOAZ. RHIANNON
--- NOTE | 2021-06-16 21:26 | NUR ---
ASSUMED CARE AT 1900 PT LAYING IN BED INTERACTIVE WITH EX- AND SON. PT IS ALERT/ORINETED X4 BUT IS PROFOUNDLY WEAK AND UNABLE TO COMMUNICATE IN COMPLETE SENTENCES WITHOUT TAKING A PAUSE; UNABLE TO MOVE EXTREMITIES INDEPENDENTLY; DOES NOT TOLERATE REPOSITIONING. SPO2 >98% ON 3LNC; MUST BE ENCOURAGED TO COUGH STRONGLY, VERY WEAK COUGH RIGHT NOW. AFIB NOTED, HR 90-100. SBP 100'S; MAP >65; LEVOPHED INFUSING AT 2MCG/MIN. NPO AT THIS TIME. DIEHL IN PLACE AND DRAINING TO GRAVITY. SEE SHIFT ASSESSMENT FOR FULL ASSESSMENT.
[2021-06-17 02:50] LABS: Hematocrit 31.2 % (37.0-53.0); Hemoglobin 10.3 g/dL (13.5-17.5); Mean Corpuscular HGB 30.9 pg (26.0-34.0); Mean Corpuscular Volume 94 fL (80-100); NRBC ABSOLUTE 0.11 K/mm3 (0.00-0.02); NRBC Auto 0.8 /100 WBC (0.0-0.2); RDW Coefficient Variation 19.5 % (11.7-14.2); RDW Standard Deviation 65.4 fL (35.1-46.3); Red Blood Cell Count 3.33 M/mm3 (4.30-5.90); White Blood Cell Count 13.12 K/mm3 (4.00-11.30)
[2021-06-17 03:02] LABS: Platelet Count 47 K/mm3 (150-400)
[2021-06-17 03:03] LABS: Albumin, Blood 1.8 g/dL (3.4-5.0); Anion Gap 6 mmol/L (6-16); Blood Urea Nitrogen 41 mg/dL (8-24); Bun/Creatinine Ratio 54.9 (12.0-20.0); CO2, Blood 30 mmol/L (21-32); Calcium, Blood 8.4 mg/dL (8.5-10.1); Chloride, Blood 117 mmol/L (98-108); Creatinine, Blood 0.75 mg/dL (0.60-1.20); Glomerular Filtration Rate >60 (60-); Glucose, Blood 157 mg/dL (70-99); Phosphorus, Blood 2.8 mg/dL (2.5-4.9); Potassium, Blood 3.3 mmol/L (3.5-5.5); Sodium, Blood 153 mmol/L (136-145)
[2021-06-17 03:30] LABS: Vancomycin, Trough 21.2 ug/mL (5.0-10.0)
[2021-06-17 03:45] LABS: BAND PERCENT MAN 20 % (0-8); BASOPHILS PERCENT MAN 0 % (0-2); EOSINOPHILS PERCENT MAN 0 % (0-6); LYMPHOCYTES ABSOLUTE MAN 0.13 K/mm3 (0.84-5.20); LYMPHOCYTES PERCENT MAN 1 % (21-46); MONOCYTES ABSOLUTE MAN 0.26 K/mm3 (0.16-1.47); MONOCYTES PERCENT MAN 2 % (4-13); MYELOCYTE ABSOLUTE MAN 0.13 K/mm3 (0.00-0.00); MYELOCYTE PERCENT MAN 1 % (0-0); NEUTROPHILS ABSOLUTE MAN 12.59 K/mm3 (1.96-9.15); SEG NEUTROPHILS PERCENT MAN 76 % (41-73); TOTAL CELLS COUNTED 100
--- NOTE | 2021-06-17 06:51 | NUR ---
END OF SHIFT SUMMARY PT DID NOT SLEEP DURING THE SHIFT. PT CONT TO BE ORIENTED X4 BUT NOW MORE DISORIENTED TO AMOUNT OF TIME THINKING THAT HIS HAS NOT BEEN HERE FOR SEVERAL DAYS AND THAT SEVERAL HOURS HAVE GONE BY RATHER THAN 30MIN; CONT TO ASK FOR WATER EVEN WHEN EDUCATED ON RISKS OF ASPIRATION. ABLE TO TOLERATE CPAP FOR 3HR TOTAL, NOW ON RA WITH SPO2 >98%. AFIB NOTED, HR 80-100. SBP 90-120; LEVOPHED ON SB SINCE 0000. DIEHL IN PLACE WITH 1000ML OUTPUT. NS INFUSING AT 50ML/HR. WILL REPORT TO AM RN WHEN AVAILABLE.
--- NOTE | 2021-06-17 17:54 | NUR ---
REPORTED TO DR AVILEZ AT 1640, TOTAL OUT PUT WAS 30 ML, STARTED 1/2 NS, TRIKLE FEEDS UNTIL ST AND NUTRIENT CAN SEE PATIENT, DR AVILEZ WANTS TO JUST WATCH THE OUT PUT PATIENT IS -1000 ML, DOBHOFF PLACED, PLACEMENT CHECKED BY RADIOLOGIST AND OK TO USE, TRIKLE FEED AT 10 ML/HR NEPRO 1.2, AT BEDSIDE, WCTM
[2021-06-17 18:40] LABS: Albumin, Blood 1.9 g/dL (3.4-5.0); Anion Gap 3 mmol/L (6-16); Blood Urea Nitrogen 44 mg/dL (8-24); Bun/Creatinine Ratio 63.1 (12.0-20.0); CO2, Blood 30 mmol/L (21-32); Calcium, Blood 8.8 mg/dL (8.5-10.1); Chloride, Blood 123 mmol/L (98-108); Glomerular Filtration Rate >60 (60-); Glucose, Blood 143 mg/dL (70-99); Potassium, Blood 3.7 mmol/L (3.5-5.5); Sodium, Blood 156 mmol/L (136-145)
[2021-06-18 04:54] LABS: Hematocrit 33.3 % (37.0-53.0); Hemoglobin 10.6 g/dL (13.5-17.5); Mean Corpuscular HGB 30.1 pg (26.0-34.0); Mean Corpuscular HGB Conc 31.8 g/dL (31.5-36.5); Mean Corpuscular Volume 95 fL (80-100); NRBC Auto 3.8 /100 WBC (0.0-0.2); Platelet Count 85 K/mm3 (150-400); RDW Coefficient Variation 19.9 % (11.7-14.2); RDW Standard Deviation 67.7 fL (35.1-46.3); Red Blood Cell Count 3.52 M/mm3 (4.30-5.90); White Blood Cell Count 10.56 K/mm3 (4.00-11.30)
[2021-06-18 05:10] LABS: Mean Platelet Volume 13.2 fL (9.1-12.4)
[2021-06-18 05:27] LABS: Albumin, Blood 1.7 g/dL (3.4-5.0); Anion Gap 5 mmol/L (6-16); Blood Urea Nitrogen 45 mg/dL (8-24); Bun/Creatinine Ratio 65.9 (12.0-20.0); CO2, Blood 29 mmol/L (21-32); Calcium, Blood 8.4 mg/dL (8.5-10.1); Chloride, Blood 123 mmol/L (98-108); Creatinine, Blood 0.68 mg/dL (0.60-1.20); Glomerular Filtration Rate >60 (60-); Glucose, Blood 183 mg/dL (70-99); Phosphorus, Blood 3.4 mg/dL (2.5-4.9); Potassium, Blood 3.5 mmol/L (3.5-5.5); Sodium, Blood 157 mmol/L (136-145)
--- NOTE | 2021-06-18 05:42 | NUR ---
SHIFT SUMMERY- NO ACUTE CHANGES OVERNIGHT OR CHANGES TO CURRENT PLAN OF CARE
[2021-06-18 05:52] LABS: BAND PERCENT MAN 11 % (0-8); BASOPHILS PERCENT MAN 0 % (0-2); EOSINOPHILS PERCENT MAN 0 % (0-6); LYMPHOCYTES PERCENT MAN 1 % (21-46); MONOCYTES ABSOLUTE MAN 0.31 K/mm3 (0.16-1.47); MONOCYTES PERCENT MAN 3 % (4-13); NEUTROPHILS ABSOLUTE MAN 10.13 K/mm3 (1.96-9.15); SEG NEUTROPHILS PERCENT MAN 85 % (41-73); TOTAL CELLS COUNTED 100
--- NOTE | 2021-06-18 08:00 | NUR ---
PT AWAKENS TO VOICE AND IS ORIENTED TO SELF. FOLLOWS SOME COMMANDS, BUT IS QUITE CONFUSED. PT BEGAN SCREAMING WITH REPOSITIONING. UNABLE TO REORIENT AND CONSOLE PT. PT NODDED "YES" WHEN ASKED IF IN PAIN, BUT WAS UNABLE TO STATE WHERE HE IS HURTING. TROTTER, BUT WEAK. ECG CONTINUES AFIB WITH RATE 80'S. BP STABLE AND PT AFEBRILE. LUNGS DIMINISHED SLIGHTLY IN THE BASES, BUT NO NOTED SOB. ORAL CARE DONE AND PT GIVEN SMALL AMOUNT OF WATER TO RINSE HIS MOUTH. HE DID BEGIN COUGHING. PT IS HIGH RISK FOR ASPIRATION. SPEECH EVAL THIS AM. DOBHOFF TF INFUSING AT 10 CC/HR WITHOUT DIFFICULTY. PT DID HAVE SMALL, SOFT, BROWN BM. SKIN IS PALE AND FRAIL. LIPS ARE DRY WITH SCABS NOTED. MOISTURIZER PLACED AFTER ORAL CARE DONE. RIGHT NECK WITH BRUISING NOTED. PT BUTTOCKS WITH SCATTERED BRUISING, BUT NO OPEN WOUNDS. RIGHT GREAT TOES WITH A WOUND NICKEL SIZED WOUND WITH ESCAR NOTED-OPEN TO AIR. RIGHT FOOT WITH SEVERAL OTHER SCABS, BUT NO ESCAR NOTED TO THESE. ALL WOUNDS HAVE BEEN PHOTOGRAPHED AND APPEAR UNCHANGED FROM PHOTO. DIEHL WITH SMALL AMOUNT OF TEA COLORED URINE TO BSD. IVF CHANGED TO D5 1/4 NS @ 50 CC/HR DUE TO ELEVATED SODIUM.
--- NOTE | 2021-06-18 10:19 | NUR ---
PT SON IN FOR VISIT-UPDATE GIVEN. PT SON MADE MINIMAL EYE CONTACT, DID NOT ASK QUESTIONS, OR ENGAGE IN CONVERSATION WITH RN. PT CONTINUES TO MOAN AND CRY OUT WITH REPOSTIONING.
--- NOTE | 2021-06-18 13:54 | NUR ---
ECHO IN PROGRESS.
--- NOTE | 2021-06-18 15:03 | NUR ---
Spiritual care visit conducted. Patient is lying in bed and minimally responsive. Pt is receiving a shave and face wash by BOAZ Monae and is having a couple moments of humor mixed in with fighting Letha as cleans around tubes and resecures them. I provide a calming presence and prayer. Pt responds well and voices appreciation for the visit I will continue to remain available to patient and family.
[2021-06-18 15:05] LABS: Albumin, Blood 1.8 g/dL (3.4-5.0); Anion Gap 4 mmol/L (6-16); Blood Urea Nitrogen 49 mg/dL (8-24); Bun/Creatinine Ratio 63.5 (12.0-20.0); CO2, Blood 30 mmol/L (21-32); Calcium, Blood 8.7 mg/dL (8.5-10.1); Chloride, Blood 122 mmol/L (98-108); Creatinine, Blood 0.77 mg/dL (0.60-1.20); Glomerular Filtration Rate >60 (60-); Glucose, Blood 253 mg/dL (70-99); Phosphorus, Blood 3.3 mg/dL (2.5-4.9); Potassium, Blood 3.6 mmol/L (3.5-5.5); Sodium, Blood 156 mmol/L (136-145)
--- NOTE | 2021-06-18 18:42 | NUR ---
SHIFT SUMMARY: PT HAS REMAINED QUITE CONFUSED. HE HAS HAD MULTIPLE VISITS FROM FAMILY MEMBERS AND HE CAN IDENTIFY FAMILY ON OCCASION, BUT CONVERSATION IS CONFUSED. PT CONTINUES TO MOAN AND CRY OUT WITH REPOSITIONING. ECG CONTINUES AFIB WITH CONTROLLED RATE. BP HAS BEEN STABLE. PT REMAINS AT HIGH RISK FOR ASPIRIATION AND IS THUS NPO. TOLERATING DOBHOFF TF JEVITY 1.5 @ 25 CC/HR WITHOUT DIFFICULTY. CBG @ 1800 218 COVERED PER SLIDING SCALE-SEE EMAR. PT HAS HAD 2 SOFT, BROWN STOOLS TODAY. URINE OUTPUT POOR-100CC TEA COLORED URINE. ANASARCA CONTINUES. UPPER EXTREMITIES VERY EDEMATOUS-ELEVATED ON PILLOWS.
--- NOTE | 2021-06-18 19:51 | NUR ---
ASSUMED CARE PT PULLING OFF GOWN AND TELE LEADS. NODDED YES WHEN ASKED IF HE WAS HOT. SKIN TEMP IS COOL AND BOSY TEMP IS 98.7. OTHER TUBING AND CORDS MOVED AWAY FROM HAND GRASPING AREA. PT NODDED NO FOR PAIN. VITAL SIGNS ARE STABLE. WILL CONTINUE TO MONITOR.
[2021-06-19 03:42] LABS: BASOPHILS ABSOLUTE AUTO 0.03 K/mm3 (0.00-0.23); BASOPHILS PERCENT AUTO 0 % (0-2); Hematocrit 34.4 % (37.0-53.0); Hemoglobin 10.9 g/dL (13.5-17.5); LYMPHOCYTES PERCENT AUTO 0 % (21-46); MONOCYTES ABSOLUTE AUTO 0.23 K/mm3 (0.16-1.47); MONOCYTES PERCENT AUTO 2 % (4-13); Mean Corpuscular HGB 30.3 pg (26.0-34.0); Mean Corpuscular HGB Conc 31.7 g/dL (31.5-36.5); Mean Corpuscular Volume 96 fL (80-100); Mean Platelet Volume 12.1 fL (9.1-12.4); NRBC ABSOLUTE 0.65 K/mm3 (0.00-0.02); NRBC Auto 6.4 /100 WBC (0.0-0.2); Platelet Count 108 K/mm3 (150-400); RDW Coefficient Variation 19.9 % (11.7-14.2); RDW Standard Deviation 69.7 fL (35.1-46.3)
[2021-06-19 03:46] LABS: EOSINOPHILS PERCENT AUTO 0 % (0-6); IMMATURE GRAN ABSOLUTE AUTO 0.47 K/mm3 (0.00-0.10); IMMATURE GRAN PERCENT AUTO 5 % (0-1); NEUTROPHILS ABSOLUTE AUTO 9.37 K/mm3 (1.96-9.15); NEUTROPHILS PERCENT AUTO 93 % (41-73)
[2021-06-19 04:17] LABS: Alanine Aminotransfer (ALT/SGP 52 U/L (12-78); Albumin, Blood 1.7 g/dL (3.4-5.0); Albumin/Globulin Ratio 0.6 (0.8-1.8); Alk Phos 74 U/L (50-136); Anion Gap 6 mmol/L (6-16); Aspartate Aminotrans (AST/SGOT 19 U/L (12-37); Bilirubin, Total 0.4 mg/dL (0.1-1.0); Blood Urea Nitrogen 54 mg/dL (8-24); Bun/Creatinine Ratio 71.1 (12.0-20.0); CO2, Blood 29 mmol/L (21-32); Calcium, Blood 8.5 mg/dL (8.5-10.1); Chloride, Blood 123 mmol/L (98-108); Creatinine, Blood 0.76 mg/dL (0.60-1.20); Digoxin (Lanoxin) 2.04 ug/mL (0.80-2.00); Globulin, Blood 2.9 g/dL (2.2-4.0); Glomerular Filtration Rate >60 (60-); Glucose, Blood 283 mg/dL (70-99); Magnesium, Blood 2.4 mg/dL (1.6-2.4); Potassium, Blood 3.4 mmol/L (3.5-5.5); Sodium, Blood 158 mmol/L (136-145); Total Protein, Blood 4.6 g/dL (6.4-8.2)
--- NOTE | 2021-06-19 06:17 | NUR ---
SHIFT SUMMARY PT IS MORE ALERT THIS AM. PT SAYS HE IS IN THE [facility] IN [place], WANTING LIGHTS ON AND OFF AND REPORTING THAT HE FEELS COLD. HE WAS YELLING OUT MOST OF THE NIGHT AND THIS AM WHEN ASKED WHAT WAS WRONG HE STATED HE "JUST WANTED ATTENTION." HE YELLS OUT LOUDLY WHEN BEING REPOSITIONED WELL. PT VITALS HAVE BEEN STABLE AND HAS BEEN ON ROOM AIR WITH SATS ABOVE 92%. HR AFIB 80-100. PT HAS DENIED CHEST PAIN. REFUSED CPAP LAST NIGHT. WILL CONTINUE TO MONITOR.
--- NOTE | 2021-06-19 08:00 | NUR ---
PT MOANING AND CRYING OUT. ORIENTED TO SELF. PT VERY AGITATED AND CONFUSED. PT SHAKING HIS FISTS AT STAFF. PT UNABLE TO COMMUNICATE TO WHY HE IS MOANING AND CRYING. PT GIVEN BED BATH AND ADL'S COMPLETED, BUT HE DID CRY OUT THE ENTIRE TIME. PT AFEBRILE. ECG SHOWS AFIB WITH RATE 80'S. BP STABLE. LUNGS SLIGHTLY DIMINISHED IN THE BASES, BUT NO NOTED SOB. SATS>90% ON RA. DURING ORAL CARE, PT GIVEN SMALL AMOUNT OF WATER TO RINSE HIS MOUTH. RN REQUESTED THAT PT SWISH THE WATER AROUND AND NOT SWALLOW IT. PT SWALLOWED THE WATER AND BEGAN CHOKING. ATTEMPTED TO BRUSH TEETH AGAIN LATER AND PT BIT OF BRISTLES. YANKEUR SUCTION ATTEMPTED, BUT PT BIT THE END OF THE SUCTION. PT LIPS STILL HAVE SCABS ON THEN, BUT IMPROVED FROM YESTERDAY. OGTF @ GOAL OF 55. NO GI DISTRESS. PT INCONTINENT OF SMALL AMOUNT OF SOFT, BROWN STOOL. STOOL SOFTENER HELD THIS AM. DIEHL TO BSD WITH ADEQUATE AMOUNT OF CLEAR, YELLOW URINE. IRRIGATED WITH 30 CC STERILE WATER THERE WAS AN ISSUE WITH SEDIMENT LAST NIGHT. ANASARCA CONTINUES. UPPER EXTREMITIES MORE SWOLLEN THAN YESTERDAY. ELEVATED ON PILLOWS. PT HAS SCATTERED BRUISES T/O THAT ARE BEGINNING TO FADE. COCCYX AND BACK BRUISES ALSO FADING. THERE IS A SMALL TEAR TO PT GLUTEAL FOLD-FOAM DRESSING PLACED. THE SCABS TO PT FEET ARE UNCHANGED. THE RIGHT GREAT TOE WOUND REMAINS DRY WITH ESCAR AND OPEN TO AIR.
--- NOTE | 2021-06-19 09:30 | NUR ---
PT HERE TO SEE PT. UPDATE GIVEN. SPOKE WITH HER AT LENGTH REGARDING PLAN OF CARE, DNR, AND COMFORT CARE OPTIONS. THE PLAN IS TO GATHER FAMILY MEMBERS TO DISCUSS THIS FURTHER AND RE-EXAMINE OPTIONS LATER TODAY.
--- NOTE | 2021-06-19 12:00 | NUR ---
DR. SAAB IN TO SEE PT AND TO SPEAK WITH GISELA. THE PLAN IS TO DISCUSS CODE STATUS AND COMFORT CARE WHEN PT CHILDREN ARRIVE LATER TODAY. PT SLEEPS INTERMITTENTLY WHEN NOT DISTURBED. HE REMAINS CONFUSED. PT MOANS AND CRIES OUT WITH ADL'S AND REPOSITIONING.
--- NOTE | 2021-06-19 13:41 | NUR ---
Alice is lying in bed and alert. Patient's spouse, María, is bedside. She tells me about pt's family and medical history. If María would talk about her feels or how she was coping pt would get loud and would pull on her arm. The same was true if the conversation centered around the pt's sons. Patient would say very short sentences. Some matched the converastion and some were just what he wanted to say at any moment. He was pulling at his Dobhoff tube throughout the visit , would yell for water at times. María asked questions about why patient still had intubation listed on his limited status when patient has been clear with her all along that he did not want to be keep alive by a breathing tube. I explained the process to change code status but then she stated that his oldest son was the medical decision maker. María states that the oldest son is very hesitant to make any decision and had fainted the last time he was in the rm. I normalize María's experience, reinforce helpful attitudes and practices and provide therapeutic listening and a calming presence. I will continue to reain available to patient and family.
[2021-06-19 14:26] LABS: Anion Gap 5 mmol/L (6-16); Blood Urea Nitrogen 51 mg/dL (8-24); Bun/Creatinine Ratio 67.2 (12.0-20.0); CO2, Blood 30 mmol/L (21-32); Calcium, Blood 8.4 mg/dL (8.5-10.1); Chloride, Blood 124 mmol/L (98-108); Creatinine, Blood 0.76 mg/dL (0.60-1.20); Glomerular Filtration Rate >60 (60-); Glucose, Blood 292 mg/dL (70-99); Potassium, Blood 3.6 mmol/L (3.5-5.5); Sodium, Blood 159 mmol/L (136-145)
--- NOTE | 2021-06-19 16:00 | NUR ---
NO ACUTE NEURO CHANGES. PT REMAINS CONFUSED AND VERY AGITATED WITH ADL'S AND REPOSITIONING. MULTIPLE FAMILY MEMBERS HAVE BEEN IN TO VISIT TODAY. ALL FAMILY HAVE BEEN UPDATED TO PT STATUS AND PLAN OF CARE. PT SON STATES THAT PT DID RECOGNIZE HIM. TEMP 99.1 ECG CONTINUES AFIB WITH RATE 80'S. BP STABLE. NO NOTED RESPIRATORY DISTRESS. PT COUGH IS VERY WEAK AND NONPRODUCTIVE. HE IS NOT ABLE TO CLEAR SALIVA OR ORAL SECRETIONS. PT TOLERATING DOBHOFF TUBE FEED GLUCERNA @ 65 WITHOUT DIFFICULTY. DIEHL WITH ADEQUATE AMOUNT OF CLEAR, YELLOW URINE OUTPUT-NO NOTED SEDIMENT.
--- NOTE | 2021-06-19 17:11 | NUR ---
PT COUGHING, BUT COUGH IS NONPRODUCTIVE. ALBA SUCTIONED A LARGE, TENACIOUS, YELLOW/BROWN MUCUS PLUG. DR. SAAB HAS BEEN CONTACTED AT PT FAMILY REQUEST. DR. SAAB TO COME BY THIS EVENING TO TALK ABOUT DNR STATUS AND TO CONSIDER COMFORT CARE AN OPTION.
--- NOTE | 2021-06-19 17:45 | NUR ---
AFTER SPEAKING WITH FAMILY, DR. SAAB HAS CHANGED PT TO DNR. NOW MED NO TELE.
--- NOTE | 2021-06-19 19:15 | NUR ---
ASSUMPTION OF CARE: PT IS IN BED WITH EYES CLOSED. HE OPENED HIS EYES WHEN I CALLED HIS NAME. I ASKED HIM HOW HE WAS FEELING AND HE STATED "GREAT". HE IS MOANING INTERMITTENTLY BUT DENIES ANY PAIN OR DISCOMFORT AT THIS TIME. PT IS ON ROOM AIR SATS >90%. RHONCHI PRESENT IN BILATERAL LUNG JAY. DIEHL CATH AND DOBHOFF INTACT.
--- NOTE | 2021-06-20 00:54 | NUR ---
REPORT GIVEN TO MUNDO RICK FOR PT TO TRANSFER TO 333. PT TAKEN TO ROOM VIA BED W/BELONGINGS. PT IS ALERT WITH NO S/S OF ACUTE DISTRESS NOTED AT TIME OF TRANSFER. MUNDO RICK AT BEDSIDE TO RECEIVE PATIENT.
--- NOTE | 2021-06-20 01:20 | NUR ---
TRANSFER NOTE RECEIVED HANDOFF FROM TECHNICAL SALES ADVISOR DESIREE. PT ARRIVED TO FLOOR VIA [facility]. PERSONAL POSSESSIONS W/PT. TUBE FEEDING INFUSING. IV FLUIDS INFUSING. CALL BUTTON WITHIN REACH. BED ALARM ON. Q2 TURNS.
--- NOTE | 2021-06-20 03:59 | NUR ---
SHIFT SUMMARY TRANSFERED FROM ICU THIS SHIFT. DNR CODE. HE IS NPO, TUBE FEEDING INFUSING ORDERED. IV FLUIDS INFUSING ORDERED. REFUSES CPAP THIS SHIFT. DIEHL IN PLACE. Q6 HR CHEMSTICKS, LOW SS. LEFT IJ CENTRAL LINE IN PLACE. CONFUSED. ATTENDS IN PLACE, INCONTINENT. FRAGILE SKIN, MEPILEX IN PLACE ON COCCYX, PICTURES IN CHART, Q2 HR TURNS. FROM [facility]. IV ANTIB RX ARE SCHEDULED.
[2021-06-20 16:23] LABS: Free Thyroxine 0.68 ng/dL (0.70-1.60)
[2021-06-20 16:24] LABS: Prolactin 17.3 ng/mL (2.5-17.4); Thyroid Stimulating Hormone 0.765 uIU/mL (0.360-4.800)
--- NOTE | 2021-06-20 19:52 | NUR ---
SHIFT SUMMARY NO ACUTE CHANGES THIS SHIFT. PT REMAINS ON TUBE FEEDS VIA DOBHOFF @65 WITH PROGRAMMED FLUSHES. PT REMAINS BEDBOUND AND CONFUSED. DIEHL CATHETER PATENT AND DRAINING TO GRAVITY. FAMILY AT THE BEDSIDE. SPEECH THERAPY ATTEMPTED TO DO A SWALLOW EVAL ON THE PT TODAY AND WAS UNSUCCESSFUL. PT REMAINS STRICTLY NPO. REPORT GIVEN TO MANOLO SANDRA.
--- NOTE | 2021-06-20 20:00 | NUR ---
theaputic visit with pt and . sent volunteer to see pt for support they are still weighing out plan fo care. KPS score is 30%
--- NOTE | 2021-06-21 00:14 | NUR ---
CALLED HOSPITALIST INFORMED HIM THAT PT PULLED OUT HIS DOBHOF NG TUBE AND REFUSED TO ALLOW IT REPLACED. INFORMED HIM OF PT'S LAST NA+ LAB AND GLUCOSE LAB. PT IS ALSO ON STEROIDS. PREVIOUS IV FLUID STOPPED, NEW IV FLUID ORDERED. SEE EMAR. ORDER RECEIVED TO WAIT ON REPLACING THE NG TUBE FOR THIS EVENING.
--- NOTE | 2021-06-21 05:16 | NUR ---
SHIFT SUMMARY ADMITTED FOR UTI/SEPSIS. DNR CODE. IV ANTIB RX ARE SCHEDULED. IV FLUIDS INFUSING. HE DID PULL OUT HIS DOBHOF NG TUBE THIS SHIFT AND REFUSE TO HAVE IT REPLACED, SEE PREVIOUS NOTE. Q6 CHEMSTICKS. LEFT IJ CENTRAL LINE. FRAGILE SKIN, Q2 TURNS. BEDBOUND. RA. FROM [facility]. DR. WAGNER IS CONSULT. GENERALIZED EDEMA, ANASARCA. DIEHL IN PLACE. SPEECH GARBLED.
[2021-06-21 05:29] LABS: Hemoglobin 9.6 g/dL (13.5-17.5); Mean Corpuscular HGB 30.2 pg (26.0-34.0); Mean Corpuscular Volume 98 fL (80-100); Mean Platelet Volume 12.8 fL (9.1-12.4); NRBC ABSOLUTE 1.01 K/mm3 (0.00-0.02); NRBC Auto 6.8 /100 WBC (0.0-0.2); Platelet Count 140 K/mm3 (150-400); RDW Coefficient Variation 20.5 % (11.7-14.2); Red Blood Cell Count 3.18 M/mm3 (4.30-5.90); White Blood Cell Count 14.82 K/mm3 (4.00-11.30)
[2021-06-21 05:46] LABS: Anion Gap 2 mmol/L (6-16); Blood Urea Nitrogen 50 mg/dL (8-24); Bun/Creatinine Ratio 70.6 (12.0-20.0); CO2, Blood 33 mmol/L (21-32); Chloride, Blood 124 mmol/L (98-108); Creatinine, Blood 0.71 mg/dL (0.60-1.20); Glomerular Filtration Rate >60 (60-); Glucose, Blood 186 mg/dL (70-99); Potassium, Blood 3.5 mmol/L (3.5-5.5); Sodium, Blood 159 mmol/L (136-145)
[2021-06-21 06:00] LABS: BAND PERCENT MAN 7 % (0-8); BASOPHILS PERCENT MAN 0 % (0-2); EOSINOPHILS PERCENT MAN 0 % (0-6); LYMPHOCYTES ABSOLUTE MAN 0.29 K/mm3 (0.84-5.20); LYMPHOCYTES PERCENT MAN 2 % (21-46); METAMYELOCYTE ABSOLUTE MAN 1.18 K/mm3 (0.00-0.00); METAMYELOCYTE PERCENT MAN 8 % (0-0); MONOCYTES ABSOLUTE MAN 0.29 K/mm3 (0.16-1.47); MONOCYTES PERCENT MAN 2 % (4-13); MYELOCYTE ABSOLUTE MAN 0.44 K/mm3 (0.00-0.00); MYELOCYTE PERCENT MAN 3 % (0-0); NEUTROPHILS ABSOLUTE MAN 12.59 K/mm3 (1.96-9.15); SEG NEUTROPHILS PERCENT MAN 78 % (41-73); TOTAL CELLS COUNTED 100
[2021-06-21 06:21] LABS: Osmolality, Serum 342 mos/KG (275-300)
--- NOTE | 2021-06-21 10:06 | NUR ---
PATIENT REFUSES DOBHOFF FEEDIING TUBE THIS AM. THIS NURSE EXPLAINED THE IMPORTANCE OF HAVING THE TUBE IN PLACE. THE PATIENT IS STILL REFUSING AT THIS TIME.
--- NOTE | 2021-06-21 18:18 | NUR ---
SHIFT SUMMARY PATIENT IS ALERT TO SELF, FAMILY AND SITUATION MOSTLY. THE PATIENT IS COOPERATIVE WITH CARE LONG IT IS SLOW AND IT IS BEING EXPLAINED TO THE PATIENT. THE PATIENT IS VERY PARTICULAR ABOUT CARE. UNABLE TO SUCCESSFULLY PLACE DOBHOFF FEEDING TUBE, TOO MUCH RESISTANCE IN THE NASAL CAVITY. MD LYNN NOTIFIED. SPEECH EVALUATION DONE TODAY. PATIENT CAN NOW HAVE WATER AFTER ORAL CARE VIA SPOON ONLY. SPEECH WILL COME BACK BY TOMORROW AND REEVALUATE. MRI UNABLE TO OBTAIN. PATIENT COULD NOT LAY FLAT LONG ENOUGH. ON DEXTROSE 5% AT 75MLS/HR. PATIENT HAS CENTRAL LINE LEFT IJ. POOR SKIN INTEGRITY THROUGHOUT. PRETTY EDEMATOUS THROUGHOUT. Q2 TURNS WHEN PATIENT DOESNT REFUSE. PATIENT'S FAMILY IS AT BEDSIDE. FAZAL LAWRENCE'Philip. CALL LIGHT WITHIN REACH, BED IN LOWEST POSITION.
--- NOTE | 2021-06-22 05:32 | NUR ---
SHIFT SUMMARY: PT IS A/O TO SELF/FAMILY. HE HAS REMAINED NPO EXCEPT FOR H20 IN SMALL SPOONFULS. PT WAS NOT ABLE TO VOID AND WAS BLADDER SCANNED AT MIDNIGHT. PER PROTOCOL HE WAS STRAIGHT CATHED AND TOLERATED IT WELL. HIS LEFT IJ DRESSING HAD TO BE REPLACED D/T IT FALLING OFF. IT IS NOW CDI AND SECURED TO AN JAGJIT BANDAGE TO KEEP IT IN PLACE. THE PT WAS TURNED AND ORAL CARE WAS DONE Q2. DRESSINGS ARE INTACT.
[2021-06-22 05:34] LABS: Anion Gap 5 mmol/L (6-16); Blood Urea Nitrogen 37 mg/dL (8-24); Bun/Creatinine Ratio 54.7 (12.0-20.0); CO2, Blood 35 mmol/L (21-32); Calcium, Blood 7.9 mg/dL (8.5-10.1); Chloride, Blood 120 mmol/L (98-108); Creatinine, Blood 0.68 mg/dL (0.60-1.20); Glomerular Filtration Rate >60 (60-); Glucose, Blood 137 mg/dL (70-99); Potassium, Blood 2.8 mmol/L (3.5-5.5); Sodium, Blood 160 mmol/L (136-145)
--- NOTE | 2021-06-22 18:15 | NUR ---
SHIFT SUMMARY PATIENT ALERT AND ORIENTED X3 AT TIMES. PATIENT DOES GET CONFUSED. AT ONE POINT THEY SAW BUGS ON THEIR GLASSES. THE PATIENT WENT FOR AN MRI TODAY. SPEECH UPGRADED THEM TO A PUREE DIET AND WATER SPOON FED ONLY. PATIENT IS INCONTINENT OF BOWEL. THEY WERE STRAIGHT CATHED TWICE THIS SHIFT DUE TO RETENTION. PER DR. LYNN AFTER THIRD STRAIGHT CATH PUT DIEHL IN. PATIENT'S ARMS ARE EDEMATOUS AND WEEPING +2 PITTING EDEMA. ANASARCA EDEMA THROUGHOUT. PATIENT WILL BE STARTED ON DESMOPRESSIN THIS EVENING. LONG ACTIING INSULIN GIVEN. FAMILY AT BEDSIDE. CALL LIGHT WITHIN REACH. BED IN LOWEST POSITION.
--- NOTE | 2021-06-23 00:30 | NUR ---
PATIENT STILL UNABLE TO VOID AND PER PROTOCOL A DIEHL CATHETER WAS INSERTED. URINE WAS CLEAR, YELLOW, WITH SCANT AMOUNT OF SEDIMENT.
--- NOTE | 2021-06-23 04:50 | NUR ---
PT IS A/OX SELF/FAMILY. THE PATIENT WAS NOT ABLE TO URNINATE, WAS BLADDER SCANNED W/ >300 AND A DIEHL CATH WAS PLACED. REPOSITONING AND ORAL CARE WAS DONE Q2. PT HAD A SMEAR BM. THE IJ DRESSING WAS NOT INTACT AND HAD TO BE REPLACED AROUND 0430. THE PT WAS VERY FATIGUED AT THE BEGINNING OF THE SHIFT, BUT SEEMED MORE ORIENTED THE SHIFT PROGRESSED. THE RN AND TRUST ADVISOR WILL CONTINUE TO DO FREQUENT MONITORING.
[2021-06-23 06:01] LABS: Anion Gap 6 mmol/L (6-16); Blood Urea Nitrogen 30 mg/dL (8-24); Bun/Creatinine Ratio 53.1 (12.0-20.0); CO2, Blood 34 mmol/L (21-32); Chloride, Blood 116 mmol/L (98-108); Creatinine, Blood 0.57 mg/dL (0.60-1.20); Glomerular Filtration Rate >60 (60-); Glucose, Blood 135 mg/dL (70-99); Potassium, Blood 2.7 mmol/L (3.5-5.5); Sodium, Blood 156 mmol/L (136-145)
--- NOTE | 2021-06-23 17:29 | NUR ---
PATIENT STARTED THIS AM LETHARGIC, DOSING WHILE BEING TALKED TO. HEART SOUNDED AFIB. LABS WERE DONE AND PROVIDER ORDERED POTASSIUM. IT APPEARS THAT THIS HAS HELPED HIS ALERTNESS. HE IS DRINKING TEASPOONS OF WATER AND STILL HAS TROUBLE SWALLOWING THEM WITHOUT COUGHING AND SOUNDING RASPY AFTERWARD. ICE CHIPS HAVE BEEN BETTER TOLERATED. PUREED FOODS ALSO APPEAR TO STILL BE A CHOKING/ASPIRATION RISK. PATIENT HAS EDEMA ALL OVER HIS BODY- EXTREMITIES AND HIS FLANK AREA. ARMS ARE WEEPING. HE HAS PAIN WHEN HE IS TURNED IN THE BED. D5 1/2 STILL RUNNING THROUGH CENTRAL LINE.
--- NOTE | 2021-06-24 04:58 | NUR ---
SHIFT SUMMARY PATIENT SLEPT ON AND OFF THROUGHOUT THE NIGHT, A&OX 2-3, VSS ON RA, DENIES PAIN AND SHORTNESS OF BREATH, Q2 HOUR REPOSITIONING AND ORAL CARE PROVIDED, PATIENT PROVIDED MOUTH MOISTURIZER AND ICE CHIPS TO KEEP MOUTH MOIST, PATIENT DOES CONTINUE TO CHOKE AT TIMES WITH ANY ORAL INTAKE, WEAK COUGH NOTED, PATIENT SITTING UPRIGHT WITH ALL ORAL INTAKE, DIEHL REMAINS IN PLACE DRAINING DARK YELLOW URINE, GENERALIZED EDEMA CONTINUES EXTREMITIES ELVATED ON PILLOWS, CBGs WNL, IJ TO LEFT SIDE WNL, FAMILY IN TO VISIT
[2021-06-24 06:44] LABS: Anion Gap 5 mmol/L (6-16); Blood Urea Nitrogen 21 mg/dL (8-24); Bun/Creatinine Ratio 43.9 (12.0-20.0); CO2, Blood 33 mmol/L (21-32); Calcium, Blood 7.4 mg/dL (8.5-10.1); Chloride, Blood 112 mmol/L (98-108); Creatinine, Blood 0.48 mg/dL (0.60-1.20); Glomerular Filtration Rate >60 (60-); Glucose, Blood 98 mg/dL (70-99); Potassium, Blood 2.4 mmol/L (3.5-5.5); Sodium, Blood 150 mmol/L (136-145)
[2021-06-24 14:20] LABS: Anion Gap 6 mmol/L (6-16); Blood Urea Nitrogen 15 mg/dL (8-24); Bun/Creatinine Ratio 37.8 (12.0-20.0); CO2, Blood 27 mmol/L (21-32); Calcium, Blood 6.1 mg/dL (8.5-10.1); Chloride, Blood 117 mmol/L (98-108); Glomerular Filtration Rate >60 (60-); Glucose, Blood 116 mg/dL (70-99); Potassium, Blood 2.7 mmol/L (3.5-5.5); Sodium, Blood 150 mmol/L (136-145)
--- NOTE | 2021-06-24 18:17 | NUR ---
PATIENTS FLUIDS WERE CHANGED TO D5LR TODAY. HE HAD IV ALBUMIN, TWO MORE BAGS OF POTASSIUM. CONSULT WITH SPECIALIZE OVER IPAD AND SHE ORDERED PO POTASSIUM ON TO BE GIVEN TONIGHT. PATIENT DID NOT TOLERATE THE PO POTASSIUM IT BURNED HIS MOUTH SORES. HE DRANK 2ML OUT OF THE 30 THAT SHOULD HAVE BEEN TAKEN. DR LYNN WAS UPDATED WITH THIS INFORMATION SO THAT ANOTHER BAG OF POTASSIUM COULD BE ORDERED IF NECESSARY. ALSO-LONG ACTING INSULIN WAS HELD THIS AM, THE PATIENT SUGAR WAS TRENDING DOWN. TODAY, HE DID NOT NEED ANY SLIDING SCALE COVERAGE EITHER. PATIENT DID NOT EAT ANY DINNER BUT DID DRINK A FEW SIPS OF MILK. INTAKE IS NOT ADEQUATE. FEEDING TUBE STILL BEING CONSIDERED TO MY UNDERSTANDING. PLEASE SEE LIST OF LABS FROM TODAY- MANY ABNORMAL.
--- NOTE | 2021-06-25 01:25 | NUR ---
PATIENTS POTASSIUM NOTED AT 2.7, DR. LIU NOTIFIED, ORDERS OBTAINED FOR POTASSIUM 40 mEq IV AND RECHECK CHEM PANEL IN AM, ORDERS PLACED
--- NOTE | 2021-06-25 05:02 | NUR ---
SHIFT SUMMARY PATIENT RESTED ON AND OFF THROUGHOUT THE NIGHT, A&O X 2-3, DENIES PAIN WHEN RESTING, HOWEVER DOES HAVE PAIN WITH REPOSITIONING, DENIES SHORTNESS OF BREATH, VSS ON RA, PATIENT CONTINUES TO HAVE GENERALIZED 2+ EDEMA, EXTREMETIES ELEVATED TOLERABLE, ALBUMIN ADMINISTERED PER ORDERS, Q2 HOUR REPOSITIONING PROVIDED, PATIENT DOES HAVE A WOUND ON HIS COCCYX, FRESH DRESSING PLACED TO AREA AFTER BEING CLEANED, WILL PASS ON TO DAY SHIFT FOR POTENTIAL WOUND CONSULT, Q2 HOUR WATER AND Q4 HOUR JUICE PROVIDED, FREQUENT ORAL CARE COMPLETED, PATIENT REMAINS EXTREMELY WEAK, PASSIVE ROM PROVIDED, CENTRAL TO RIGHT IJ WNL, SEE PREVIOUS NOTED ABOUT POTASSIUM LEVELS, MINIMAL REQUESTS NOTED THIS SHIFT
[2021-06-25 06:41] LABS: BASOPHILS ABSOLUTE AUTO 0.02 K/mm3 (0.00-0.23); BASOPHILS PERCENT AUTO 0 % (0-2); Hemoglobin 9.2 g/dL (13.5-17.5); Mean Corpuscular HGB 30.7 pg (26.0-34.0); Mean Corpuscular HGB Conc 31.7 g/dL (31.5-36.5); Mean Corpuscular Volume 97 fL (80-100); NRBC ABSOLUTE 0.94 K/mm3 (0.00-0.02); NRBC Auto 8.1 /100 WBC (0.0-0.2); RDW Standard Deviation 68.4 fL (35.1-46.3); White Blood Cell Count 11.66 K/mm3 (4.00-11.30)
[2021-06-25 06:52] LABS: Alanine Aminotransfer (ALT/SGP 14 U/L (12-78); Albumin, Blood 2.5 g/dL (3.4-5.0); Albumin/Globulin Ratio 1.2 (0.8-1.8); Alk Phos 57 U/L (50-136); Anion Gap 4 mmol/L (6-16); Aspartate Aminotrans (AST/SGOT 45 U/L (12-37); Bilirubin, Total 0.8 mg/dL (0.1-1.0); Blood Urea Nitrogen 16 mg/dL (8-24); Bun/Creatinine Ratio 40.4 (12.0-20.0); CO2, Blood 34 mmol/L (21-32); Calcium, Blood 7.8 mg/dL (8.5-10.1); Chloride, Blood 113 mmol/L (98-108); Globulin, Blood 2.1 g/dL (2.2-4.0); Glomerular Filtration Rate >60 (60-); Glucose, Blood 102 mg/dL (70-99); Potassium, Blood 2.9 mmol/L (3.5-5.5); Sodium, Blood 151 mmol/L (136-145); Total Protein, Blood 4.6 g/dL (6.4-8.2)
[2021-06-25 07:00] LABS: EOSINOPHILS ABSOLUTE AUTO 0.02 K/mm3 (0.00-0.68); EOSINOPHILS PERCENT AUTO 0 % (0-6); IMMATURE GRAN ABSOLUTE AUTO 0.67 K/mm3 (0.00-0.10); IMMATURE GRAN PERCENT AUTO 6 % (0-1); LYMPHOCYTES PERCENT AUTO 0 % (21-46); MONOCYTES ABSOLUTE AUTO 0.16 K/mm3 (0.16-1.47); MONOCYTES PERCENT AUTO 1 % (4-13); NEUTROPHILS ABSOLUTE AUTO 10.79 K/mm3 (1.96-9.15); NEUTROPHILS PERCENT AUTO 93 % (41-73)
[2021-06-25 07:02] LABS: Platelet Count 47 K/mm3 (150-400)
--- NOTE | 2021-06-25 08:00 | NUR ---
pt spouce in room feeding him breakfast, pt taking small amounts, no signs of coughing, a/ox1-2, irritable, refusing to take meds as his mouth hurts, Dr. Pedersen will order something for this, lungs are clear, dim t/o, no completely cooperative with care, currently on r/a, no cough noted, hrirr, edema noted to arms especially, has wound to coccyx, elbow and right big toe, bed rest, turn q2 hrs, iv is ij to left neck, site is clear and patent, btx4, abd flat soft nontende, mccall cath draining billy urine, weak, jamal, call light in reach.
--- NOTE | 2021-06-25 14:45 | NUR ---
Review of pt condition with pt EX . She is concerned about his prognosis. Her son is looking at processing POA documents and will. Will continue to support family in his care. Pt KPS score is 40%.
--- NOTE | 2021-06-25 17:59 | NUR ---
pt in will need notary review of napoles and poa. He family is hlping her with the financial part of his care. She is realizing they need to plan due to his frailty.
--- NOTE | 2021-06-25 18:03 | NUR ---
pt has had a hard time eating due to mouth pain, recieved order for lidocain this was given before meals, he reports it helped a lot, but still reluctant to eat water given every time a staff enters room. has had a bath and repositioned throughout the day. has had a nose bleed, call out to Dr. Pederesn to notify him about it, as plts are low. spouce at bedside, call light in reach.
--- NOTE | 2021-06-25 19:31 | NUR ---
RECEIVED BEDSIDE REPORT FROM BOAZ FIGUEROA. PT IN BED, IVF AND KRIDER INFUSING. AT BEDSIDE. NOSEBLEED HAS STOPPED. PER DAYSHIFT RNDR HAD BEEN NOTIFIED. WILL PROVIDE CARE T/O SHIFT. CALL LT IN REACH.
--- NOTE | 2021-06-25 21:50 | NUR ---
PT TOLERATED SEVERAL SPOONFULS OF WATER WITHOUT DIFFICULTY. SOME SORENESS WHEN SWALLOWING. MAGIC MOUTHWASH GIVEN AFTER ALL FLUIDS AND MEDS GIVEN CRUSHED IN APPLESAUCE. PT BOOSTED UP IN BED FOR COMFORT. NO OTHER NEEDS AT THIS TIME. CALL LT IN REACH.
--- NOTE | 2021-06-26 00:42 | NUR ---
MEPILEX DRESSING CHANGED TO COCCYX AREA. PT REPOSITIONED FOR COMFORT. BUE ELEVATED ON PILLOWS. CALL LT IN REACH.
--- NOTE | 2021-06-26 02:16 | NUR ---
PT RESTING QUIETLY. IVF INFUSING. CALL LT IN REACH.
--- NOTE | 2021-06-26 04:00 | NUR ---
PT RESTING QUIETLY. CALL LT IN REACH.
--- NOTE | 2021-06-26 04:06 | NUR ---
SHIFT SUMMARY: PT CONTINUES TO SOME MOUTH PAIN WHEN SWALLOWING. MAGIC MOUTHWASH GIVEN TO PT AFTER MED PASS. PT TOLERATED SPOONFULS OF WATER WITH MINIMAL PAIN WITH SWALLOWING. TOLERATED MEDS CRUSHED AND GIVEN IN SPOONFULS OF APPLESAUCE. BUE WEEPING, RIGHT ARM SLIGHTLY MORE EDEMATOUS THAN LEFT ARM. MEPILEX'S PLACE TO BILAT FOREARMS TO HELP ABSORB WEEPING AREAS. ARMS ELEVATED ON PILLOWS. BLE ELEVATED ON PILLOWS. MEPLILEX TO COCCYX AREA CHANGED. MOISTURIZER APPLIED TO PT'S LIPS TOLERATED BY PT. PT HAS BEEN GRUMPY WITH HIS TURNING, REPOSITIONING AND MOUTH CARE. DIEHL PATENT AND DRAINING YELLOW URINE. NO NOSEBLEEDS ON THIS SHIFT. WILL CONTINUE PROVIDE CARE UNTIL SHIFT REPORT TO ONCOMING NURSE. CALL LT IN REACH.
--- NOTE | 2021-06-26 05:53 | NUR ---
DABBED LIP AND MOUTH MOISTURIZER USING A COTTON SWAB TO OUTSIDE AND CORNERS OF LIPS AND MOUTH TO HELP SOFTEN THE SCABBED AREAS AND PROVIDE MOISTURE TO MOUTH. PT TOLERATED OK.
[2021-06-26 06:22] LABS: BASOPHILS ABSOLUTE AUTO 0.03 K/mm3 (0.00-0.23); BASOPHILS PERCENT AUTO 0 % (0-2); EOSINOPHILS ABSOLUTE AUTO 0.02 K/mm3 (0.00-0.68); EOSINOPHILS PERCENT AUTO 0 % (0-6); Hematocrit 26.9 % (37.0-53.0); Hemoglobin 8.4 g/dL (13.5-17.5); Mean Corpuscular HGB 30.4 pg (26.0-34.0); Mean Corpuscular HGB Conc 31.2 g/dL (31.5-36.5); Mean Corpuscular Volume 98 fL (80-100); NRBC ABSOLUTE 0.91 K/mm3 (0.00-0.02); NRBC Auto 8.8 /100 WBC (0.0-0.2); RDW Coefficient Variation 19.9 % (11.7-14.2); RDW Standard Deviation 67.7 fL (35.1-46.3); Red Blood Cell Count 2.76 M/mm3 (4.30-5.90); White Blood Cell Count 10.38 K/mm3 (4.00-11.30)
[2021-06-26 06:39] LABS: IMMATURE GRAN ABSOLUTE AUTO 0.69 K/mm3 (0.00-0.10); IMMATURE GRAN PERCENT AUTO 7 % (0-1); LYMPHOCYTES ABSOLUTE AUTO 0.02 K/mm3 (0.84-5.20); LYMPHOCYTES PERCENT AUTO 0 % (21-46); MONOCYTES ABSOLUTE AUTO 0.25 K/mm3 (0.16-1.47); MONOCYTES PERCENT AUTO 2 % (4-13); NEUTROPHILS ABSOLUTE AUTO 9.37 K/mm3 (1.96-9.15); NEUTROPHILS PERCENT AUTO 90 % (41-73); Platelet Count 54 K/mm3 (150-400)
[2021-06-26 06:51] LABS: Alanine Aminotransfer (ALT/SGP 12 U/L (12-78); Albumin, Blood 2.8 g/dL (3.4-5.0); Albumin/Globulin Ratio 1.5 (0.8-1.8); Alk Phos 48 U/L (50-136); Anion Gap 5 mmol/L (6-16); Aspartate Aminotrans (AST/SGOT 37 U/L (12-37); Bilirubin, Total 0.7 mg/dL (0.1-1.0); Blood Urea Nitrogen 12 mg/dL (8-24); Bun/Creatinine Ratio 30.2 (12.0-20.0); CO2, Blood 33 mmol/L (21-32); Calcium, Blood 7.6 mg/dL (8.5-10.1); Chloride, Blood 110 mmol/L (98-108); Globulin, Blood 1.9 g/dL (2.2-4.0); Glomerular Filtration Rate >60 (60-); Glucose, Blood 85 mg/dL (70-99); Potassium, Blood 2.8 mmol/L (3.5-5.5); Sodium, Blood 148 mmol/L (136-145); Total Protein, Blood 4.7 g/dL (6.4-8.2)
--- NOTE | 2021-06-26 08:00 | NUR ---
pt laying in bed repositioned for breakfast, no complaints, asks for water every time in room. vonda advanced his diet to drinking out of a cup, but needs assistance. got potassium changed to pill for that can disolve and mix in yogurt, this will work better, will continue to run d5 at 100mls an hr until changes. call light in reach, will assist with eating. call light in reach.
--- NOTE | 2021-06-26 18:51 | NUR ---
we changed potassium to pill that can be disolved and was able to mix this with yogurt and administer it. much better on the oral meds today, no acute changes this shift. call light in reach.
[2021-06-27 06:10] LABS: Hematocrit 27.8 % (37.0-53.0); Hemoglobin 8.8 g/dL (13.5-17.5); Mean Corpuscular HGB 30.7 pg (26.0-34.0); Mean Corpuscular HGB Conc 31.7 g/dL (31.5-36.5); Mean Corpuscular Volume 97 fL (80-100); NRBC Auto 11.8 /100 WBC (0.0-0.2); RDW Coefficient Variation 19.8 % (11.7-14.2); RDW Standard Deviation 68.3 fL (35.1-46.3); Red Blood Cell Count 2.87 M/mm3 (4.30-5.90); White Blood Cell Count 11.05 K/mm3 (4.00-11.30)
[2021-06-27 06:31] LABS: Anion Gap 3 mmol/L (6-16); Blood Urea Nitrogen 13 mg/dL (8-24); Bun/Creatinine Ratio 30.4 (12.0-20.0); CO2, Blood 32 mmol/L (21-32); Calcium, Blood 7.8 mg/dL (8.5-10.1); Chloride, Blood 107 mmol/L (98-108); Creatinine, Blood 0.43 mg/dL (0.60-1.20); Glomerular Filtration Rate >60 (60-); Glucose, Blood 104 mg/dL (70-99); Potassium, Blood 3.9 mmol/L (3.5-5.5); Sodium, Blood 142 mmol/L (136-145)
[2021-06-27 06:36] LABS: Platelet Count 88 K/mm3 (150-400)
[2021-06-27 06:43] LABS: BAND PERCENT MAN 13 % (0-8); BASOPHILS ABSOLUTE MAN 0.11 K/mm3 (0.00-0.23); BASOPHILS PERCENT MAN 1 % (0-2); EOSINOPHILS ABSOLUTE MAN 0.11 K/mm3 (0.00-0.68); EOSINOPHILS PERCENT MAN 1 % (0-6); LYMPHOCYTES ABSOLUTE MAN 0.22 K/mm3 (0.84-5.20); LYMPHOCYTES PERCENT MAN 2 % (21-46); METAMYELOCYTE ABSOLUTE MAN 0.11 K/mm3 (0.00-0.00); METAMYELOCYTE PERCENT MAN 1 % (0-0); MONOCYTES PERCENT MAN 0 % (4-13); MYELOCYTE ABSOLUTE MAN 0.88 K/mm3 (0.00-0.00); MYELOCYTE PERCENT MAN 8 % (0-0); NEUTROPHILS ABSOLUTE MAN 9.61 K/mm3 (1.96-9.15); SEG NEUTROPHILS PERCENT MAN 74 % (41-73); TOTAL CELLS COUNTED 100
--- NOTE | 2021-06-27 08:06 | NUR ---
PATIENT ALERT TO SELF, PLACE, AND YEAR. CENTRAL LINE DRESSING CHANGED. TURNED Q2H. EXTREMITIES ELVATED D/T EDEMA. SKIN TEAR NOTED TO BILATERAL BUTTOCKS (MEPILEX ON). PATIENT PLEASANT DURING SHIFT. VERY MINIMAL SLEEP DURING THE NIGHT.
--- NOTE | 2021-06-27 18:36 | NUR ---
Spiritual Care Visit...requested by [facility] Floor Nursing. Pt. is awake and in bed. Familiy members are present. Pt. is very unsettled about his hospital stay. Listen theraputically with a calming influence. Pt. displays evidence of frustration and anxiety. Attempted to normalize Pts. experience. Pt. verbalized desire to have more agreesive PT get him out of the bed. Provided anxiety containment, and established rapport. Pt. had been visited by a paper stacker from [place]. Though anthony has not been part of the Pts. experience, he welcomed a prayer of blessing. Prayed with Pt. Pt. and family verbalized gratitude for the visit. Chaplains note: I beleive the Pts. discouragement level is very high.
--- NOTE | 2021-06-27 20:05 | NUR ---
SHIFT SUMMARY PT A&O X4 AND IN OVERALL PLEASENT MOOD. PT RELUCTANT TO CARE @ TIMES, EXPLAINED TO PT THE IMPORTANCE OF CARE- PT MORE LIKELY TO PARTICIPATE. BEDRIDDEN @ THIS TIME. DIEHL DRAINING TO GRAVITY. PT DID ASPIRATE ON WATER THAT WAS SPOONED W/ MEDS THIS AM, RESP CARE CONTACTED AND NT SUCTION ORDER OBTAINED. PT SINCE HAS NOT C/O SOB/CP. VSS. CALL LIGHT W/IN REACH.
--- NOTE | 2021-06-27 21:41 | NUR ---
WENT IN TO GIVE PT MEDICATIONS AND TO TURN HIM, PT REFUSED MEDICATION AND WAS UPSET THAT WE WERE TURNING HIM. I TRIED TO EXPLAIN TO THE PT THE NEED FOR HIS MEDICATION BUT HE REFUSED AGAIN.
--- NOTE | 2021-06-28 05:00 | NUR ---
SHIFT SUMMARY PT BECAME AGITATED AT NIGHT TIME MED PASS. WE ATTEMPTED TO TURN HIM AND HE WAS UPSET BY THAT. PT REFUSED TO TAKE HIS NIGHT TIME MEDICATIONS. I TRIED TO TALK TO HIM ABOUT WHY IT WAS IMPORTANT TO TAKE HIS MEDICATIONS, BUT HE STILL REFUSED. PT HAS BEEN TURNED, CHANGED, AND COCCYX MEPILEX REPLACED SEVERAL TIMES THIS SHIFT. CALL LIGHT WITHIN REACH. WILL CONTINUE TO MONITOR.
--- NOTE | 2021-06-28 05:57 | NUR ---
PT REFUSES SUCTIONING, STS "THERE IS NOTHING IN MY THROAT".
[2021-06-28 10:51] LABS: Albumin, Blood 2.3 g/dL (3.4-5.0); Anion Gap 7 mmol/L (6-16); Blood Urea Nitrogen 13 mg/dL (8-24); Bun/Creatinine Ratio 31.7 (12.0-20.0); CO2, Blood 30 mmol/L (21-32); Calcium, Blood 7.9 mg/dL (8.5-10.1); Chloride, Blood 104 mmol/L (98-108); Creatinine, Blood 0.41 mg/dL (0.60-1.20); Glomerular Filtration Rate >60 (60-); Glucose, Blood 84 mg/dL (70-99); Phosphorus, Blood 2.9 mg/dL (2.5-4.9); Potassium, Blood 3.7 mmol/L (3.5-5.5); Sodium, Blood 141 mmol/L (136-145)
--- NOTE | 2021-06-28 16:49 | NUR ---
Pt's is meeting with domingo here at 1300 tomorrow to sign POA paperwork. Palliative care continue to provide supportive visits via phone and in-person with pt's as needed.
--- NOTE | 2021-06-28 16:53 | NUR ---
SHIFT SUMMARY PT A&O X4 AND IN PLEASENT MOOD T/O SHIFT. PT COOPERATIVE W/ CARE, THOUGH DOES BECOME IMPATIENT W/ ROLLS/REPOSITION. PT IN LIGHT MOOD, JOKING T/O SHIFT. SWALLOW STUDY COMPLETED TODAY, NO CHANGES PER SPEECH THERAPY- PUREE DIET, SPOONFUL OF THIN LIQUIDS, OFFER LIQUIDS IN BETWEEN BITES OF FOOD. FAMILY @ BEDSIDE DURING VISITING HOURS. HYPOTENSION REPORTED TO PLAN TO CONTINUE TO MONITOR FOR S/S- PT ASYMPTOMATIC @ THIS TIME. VSS. CALL LIGHT W/IN REACH. DIEHL DRAINING TO GRAVITY.
--- NOTE | 2021-06-29 03:46 | NUR ---
SHIFT SUMMARY PT MUCH MORE COMPLIANT AND PLEASANT REGARDING CARE TONIGHT. PT SLEEPING OFF AND ON THROUGHOUT SHIFT. PT HAS MUCUS AND NEEDS SOME LIGHT SUCTIONING PERIDICALLY. PT TURNED IN BED OFTEN TO AVOID SKIN ISSUES, PT IS MORE COOPERATIVE WITH THIS TONIGHT. PT HAS D5 RUNNING AT 50ML/HR. CALL LIGHT IS WITHIN HIS REACH AND HE WILL TRY TO USE IT APPROPRIATELY. I WILL CONTINUE TO MONITOR HIM. PT ON 2L O2 VIA NC.
[2021-06-29 05:52] LABS: Hemoglobin 8.9 g/dL (13.5-17.5); Mean Corpuscular HGB 30.8 pg (26.0-34.0); Mean Corpuscular Volume 93 fL (80-100); NRBC ABSOLUTE 2.12 K/mm3 (0.00-0.02); NRBC Auto 19.3 /100 WBC (0.0-0.2); RDW Coefficient Variation 19.9 % (11.7-14.2); RDW Standard Deviation 65.3 fL (35.1-46.3); Red Blood Cell Count 2.89 M/mm3 (4.30-5.90); White Blood Cell Count 10.99 K/mm3 (4.00-11.30)
[2021-06-29 06:01] LABS: Albumin, Blood 2.1 g/dL (3.4-5.0); Anion Gap 7 mmol/L (6-16); Blood Urea Nitrogen 14 mg/dL (8-24); Bun/Creatinine Ratio 34.7 (12.0-20.0); CO2, Blood 28 mmol/L (21-32); Calcium, Blood 7.8 mg/dL (8.5-10.1); Chloride, Blood 105 mmol/L (98-108); Glomerular Filtration Rate >60 (60-); Glucose, Blood 99 mg/dL (70-99); Phosphorus, Blood 2.9 mg/dL (2.5-4.9); Potassium, Blood 4.2 mmol/L (3.5-5.5); Sodium, Blood 140 mmol/L (136-145)
[2021-06-29 06:17] LABS: Platelet Count 93 K/mm3 (150-400)
--- NOTE | 2021-06-29 19:51 | NUR ---
SHIFT SUMMARY: PT A/O X 2-3, BEDREST. PT WORKED WITH PT THIS AM AND HE COULD ONLY TOLERATE DANGLING AT BEDSIDE FOR A FEW MINUTES. HE BECAME VERY TIRED. PT COULD NOT TOLERATE HOB FLAT AND NEEDED TO BE ELEVATED AT LEAST 30 DEGREES. PT ONLY TOOK IN SIPS AND BITES AT MEALTIMES. SIPS OF DRINKS BETWEEN MEALS. SORES CONTINUE TO BE PAINFUL WITH MEALS. PT CONTINUES TO HAVE SOME COUGHING SPELLS WITH FLUID INTAKE BUT ABLE TO CLEAR WITH COUGH. PT CONTINUES TO BE ON O2 AT 2 LPM VIA NC. PT TX TO AIRBED THIS EVENING FOR COMFORT AND PREVENTION OF SKIN BREAKDOWN. MEPILEX IN PLACE ON COCCYX AND CDI AT TIME OF TX TO AIR BED. FAMILY VISITED OFF AND ON THROUGHOUT THE DAY.
--- NOTE | 2021-06-30 04:25 | NUR ---
AT APPROX 0400 RN WALKED INTO PT ROOM AND PT HAD PULLED OFF NASAL CANULA. AT THAT TIME NASAL CANULA WAS REPLACED AND RN CALLED RESPIRATORY TO COME ASSESS PT DUE TO PT WORK OF BREATHING AND INCREASE IN RESPIRATIONS. RN ATTEMPTED TO GET VITAL SIGNS ON PT, UNABLE TO AT THAT TIME DUE TO EDEMA IN BILATERAL ARMS. ATTEMPTED SEVERAL METHODS. RT PLACED PT ON CPAP WITH 02 BLED IN AT 10L. CONT PULSE OX PLACED ON PT. PT HR SUSTAINING ABOVE 130 BPM. CALL PLACED TO MD BY LABORATORY ANIMAL CARE VETERINARIAN TO UPDATE MD ON PT STATUS. PT HR SUSTAINING ABOVE 130 BPM. MD AGREED ON PT TRANSFER TO PCU AT THIS TIME. WILL CONTINUE TO MONITOR UNTIL BEATER HEAD ASSUMES CARE OF PT.
--- NOTE | 2021-06-30 05:11 | NUR ---
REPORT CALLED TO BOAZ MILLER IN PCU WITH REPORT OF PT. PT TRANSFERED TO PCU 19 AT APPROX 0435. PT BELONGINGS TAKEN WITH PT, ALONG WITH HOME MEDICATIONS, GLASSES, AND CELL PHONE.
[2021-06-30 05:30] LABS: PCO2 Arterial 33.8 mmHg (35-45); PO2 Arterial 53.2 mmHg (80-100); pH Blood Arterial 7.54 (7.35-7.45)
--- NOTE | 2021-06-30 06:39 | NUR ---
PT TRANSFERED FROM # 333 ON MEDICAL CARE FLOOR AT APPROXIMATELY 0530. PT IS ORIENTED TO SELF. HR IN 170'S IN A-FIB. PT TOLERATING CPAP POORLY, REQUESTING IT TO BE REMOVED. O2 SATS DIFFICULT TO READ DUE TO POOR PERFUSION. O2 SATS IN THE HIGH 90'S. PLACED ON HIGH FLOW NC AT 12 LPM WITH O2 SATS REMAINING IN THE MID TO HIGH 90'S. PT MEDICATED FOR HIGH HR IWTH 5 MG METOPROLOL IV PUSH PER DOCTOR'S INSTRUCTIONS. HR DECREASED INTO 120'S THEN INCREASED INTO 140'S, STILL IN A-FIB. DR. NEGRETE NOTIFIED, SECOND 5 MG METOPROLO IV PUSH GIVEN, HR NOW IN 110'S-120'S, WILL MONITOR. PT'S BP TOLERATED PUSHES WELL.
--- NOTE | 2021-06-30 07:37 | NUR ---
CALLED DR. TYLER. NOTIFIED HIM OF PATIENT'S BLOOD PRESSURE, SYSTOLIC IN THE 70'S-80'S AND HEART RATE UP TO THE 150'S. DISCUSSED IV FLUIDS AND LOPRESSOR RECEIVED THIS AM. HE SAID HE WOULD PUT IN ORDERS FOR NORMAL SALINE AND AMIODARONE, DC D5.
--- NOTE | 2021-06-30 08:37 | NUR ---
DR. TYLER AT BEDSIDE. DISCUSSED POC. PATIENT'S HEART RATE DOWN INTO THE 1TEENS-120'S, EVEN TOUCHING 90 AT TIMES. PATIENT HAS RECEIVED AMIODARONE BOLUS AND IS ON INFUSION NOW. LAST BP 90/67. PATIENT MORE AWAKE AND ALERT, ASKING FOR WATER. DR. TYLER STATES IF PATIENT'S SYSTOLIC BP IS >100 HE MAY CONSIDER DILTIAZEM.
--- NOTE | 2021-06-30 11:15 | NUR ---
CALLED DR. TYLER. NOTIFIED HIM FOR THE LAST HOUR PATIENT'S SBP HAS BEEN IN THE 80'S. MAP HAS BEEN IN THE 60'S-70'S. HEART RATE AVERAGES IN THE 120'S. LAST POTASSIUM 4.2. ORDERS RECEIVED TO HOLD SPIRONOLACTONE AND K-DUR THIS AM. SAYS TO CONTINUE TO MONITOR BLOOD PRESSURE, MAY IMPROVE WITH CURRENT FLUIDS RUNNING AT 100 MLS/HR, CALL IF PATIENT BECOMES SYMPTOMATIC OR MAP DECREASES <60.
--- NOTE | 2021-06-30 15:45 | NUR ---
DR. TYLER AT BEDSIDE. DISCUSSED POC. REVIEWED PATIENT'S HEART RATE AND BLOOD PRESSURE. HEART RATE IS STILL IN THE 120'S-130'S AND JUMPS UP TO THE 140'S-150'S AT TIMES. HE RECEIVED THE DIGOXIN. DR. TYLER STATED THAT HE DOES NOT WANT TO GIVE THE PATIENT TOO MUCH FLUID. CONTINUING WITH CURRENT ORDERS AT THIS TIME.
--- NOTE | 2021-06-30 16:25 | NUR ---
Review of pt needs and prognosis with hospitalisit.
--- NOTE | 2021-06-30 17:44 | NUR ---
CALLED DR. TYLER. NOTIFIED HIM PATIENT HAS ONLY HAD 350 MLS URINE OUTPUT DURING THE LAST 24 HOURS, LAST RECORDED OUTPUT WAS 06/29/21 AT 1915. ORDERS RECEIVED FOR NORMAL SALINE 200 MLS/HR X1 LITER THEN RESUME NORMAL SALINE AT 100MLS/HR. HOLD POTASSIUM THIS EVENING. DISCUSSED PATIENT'S PRESSURE WOUNDS, HE SAYS OK FOR INPATIENT WOUND CONSULT.
--- NOTE | 2021-06-30 18:47 | NUR ---
SHIFT SUMMARY: PATIENT A/OX1-2. THIS AM HE WAS DROWSY BUT HE BECAME MORE ALERT AND AWAKE. REPORTED PAIN IN HIS LEGS THIS AFTERNOON AND REQUESTED TYLENOL BUT THEN HE WAS ABLE TO SLEEP AND DENIED PAIN. OXYGEN REQUIREMENTS HAVE RANGED FROM 5L - 9L VIA OXYMIZER. THIS AM HE WOULD PULL HIS OXYGEN OFF AND THEN IT WOULD TAKE A LITTLE TIME FOR HIS SPO2 TO RECOVER TO 90'S. CAN BE ON 5L AT REST BUT WITH REPOSITIONING SOMETIMES HE DESATURATES AND O2 NEEDS TO BE INCREASED. HEART RATE WAS IN THE 150'S-160'S THIS AM AND SYSTOLIC BP IN THE 80'S. AMIODARONE GIVEN. DIGOXIN GIVEN THIS AFTERNOON. HEART RATE IS NOW IN THE 120'S-130'S. BUE SWOLLEN AND WEEPING. SPEECH THERAPY SAW HIM TODAY, THIN LIQUIDS VIA SPOON AND PUREE DIET. FAZAL ONLY HAD 350 OUT IN APPROX 24 HOURS, IV FLUID INCREASE ORDERED. REPOSITIONED Q2H. WOUNDS TO BUTTOCKS CLEANSED AND DRESSINGS CHANGED. NEW PICTURES TAKEN OF WOUNDS FOR CHART LAST PICTURES WERE OVER 1 WEEK OLD. HE HAD MULTIPLE FAMILY MEMBERS VISIT HIM TODAY. HIS SIGNIFICANT OTHER SAID SHE HAD SOMEONE WORK ON HIS WILL AND POWER OF BRICK YARD HAND YESTERDAY. PLAN IS TO CONTINUE TO CLOSELY MONITOR BLOOD PRESSURE AND HEART RATE. WILL CONTINUE TO MONITOR AND REPORT TO ONCOMING RN.
--- NOTE | 2021-06-30 21:56 | NUR ---
PT IS DROWSY BUT ABLE TO AROUSE. DIFFICUTLY TO UNDERSTAND SPEECH AT BEGINNING OF SHIFT BUT CLEARNING NOW. ORIENTED TO SELF AND LOCATION. INFORMS RN THAT HE FEELS BETTER THIS EVENING BUT IS UNABLE TO EXPOUND ON WHY. DENIES ANY SOB OR CHEST PAIN AT THIS TIME. HR IN A-FIB BETWEEN 110-130. SOFT BP'S WITH MAP > 60. PT RECEIVING DIGOXIN IV, HR DECREASING INTO 90'S NOW BUT THEN INCREASING TO 120'S, WILL MONITOR. AMNIODERONE DRIP INFUSING ORDERED. NS RUNNING AT 200ML/HR FOR 1 BAG. PT SPOON FED WATER AT REQUEST, NEEDS MULTIPLE CLEARING OF THROAT BEFORE SWALLOWS ALL OF WATER. TAKES EVENING MEDS CRUSHED IN APPLESAUCE. PT ALLOWS ME TO PLACE HIM ON CPAP, INCREASED 02 BLEED IN TO 10 ML DUE TO DESATURATION TO 88%, WILL MONITOR. PT TOLERATING MASK. PT IS NOT PULLING AT TUBES OF LINES THIS EVENING. RESTING WITH EYES CLOSED, APPEARS TO BE SLEEPING.
--- NOTE | 2021-07-01 00:59 | NUR ---
PT O2 SATS DECREASED TO 84%, INCREASED O2 FROM 5-7LPM, SATS AT 95%. COMPLAINING OF HIS NOSE BEING DRY AND STUFFY. PLACED ON AIRVO BY RT 20L AT 50%. WILL MONITOR TO SEE IF PT IS MORE COMFORTABLE. REPOSITIONED FOR COMFORT.
[2021-07-01 04:18] LABS: Hematocrit 25.8 % (37.0-53.0); Hemoglobin 8.1 g/dL (13.5-17.5); Mean Corpuscular HGB 30.2 pg (26.0-34.0); Mean Corpuscular HGB Conc 31.4 g/dL (31.5-36.5); Mean Corpuscular Volume 96 fL (80-100); NRBC ABSOLUTE 1.39 K/mm3 (0.00-0.02); NRBC Auto 12.5 /100 WBC (0.0-0.2); RDW Coefficient Variation 19.9 % (11.7-14.2); RDW Standard Deviation 68.2 fL (35.1-46.3); Red Blood Cell Count 2.68 M/mm3 (4.30-5.90)
[2021-07-01 04:25] LABS: Anion Gap 5 mmol/L (6-16); Blood Urea Nitrogen 16 mg/dL (8-24); CO2, Blood 29 mmol/L (21-32); Calcium, Blood 7.3 mg/dL (8.5-10.1); Chloride, Blood 107 mmol/L (98-108); Creatinine, Blood 0.47 mg/dL (0.60-1.20); Digoxin (Lanoxin) 1.22 ug/mL (0.80-2.00); Glomerular Filtration Rate >60 (60-); Glucose, Blood 80 mg/dL (70-99); Potassium, Blood 3.3 mmol/L (3.5-5.5); Sodium, Blood 141 mmol/L (136-145)
--- NOTE | 2021-07-01 05:18 | NUR ---
PT'S O2 SATS REMAIN IN MID 90'S ON AIRVO. REPORTS HIS NOSE IS MORE COMFORTABLE WITH AIRVO. TOLERATING SIPS OF WATER FROM SPOON BUT NEEDS TIME TO COUGH AND CLEAR BETWEEN SIPS. BP'S REMAIN SOFT WITH MAP >60, HR IS IN LOW 100'S A-FIB. DIEHL CONTINUES TO PUT OUT CLEAR, ORANGE URINE WITHOUT DIFFICUTLY. REPOSITIONED FOR COMFORT Q2HR. DECLINING ANY ORAL CARE OTHER THEN MOISTENING LIPS.
[2021-07-01 05:26] LABS: Platelet Count 63 K/mm3 (150-400)
--- NOTE | 2021-07-01 17:38 | NUR ---
SHIFT SUMMARY; ASSUMED CARE AT 0700. AIR VO IN PLACE DURING SHIFT ALTERNATING WITH CPAP DURING NAPS. AIR VO 40L 46%. SATS MAINTAINING 94-96%. L/S COARSE THIS AM, IMPROVED IN AFTERNOON. CARDIZEM DRIP STARTED AT 5ML/HR FOR AFIB WITH INCREASED HR, TOLERATING WELL, BP STABLE. MAINTAINCE FLUIDS DC'D TODAY. PO WATER BY SPOON. Q2 TURNS DURING SHIFT. COMPLETE BED BATH TODAY WITH LINEN CHANGE. A/A/OX4, WILL CONTINUE TO MONITOR UNTIL CHANGE OF SHIFT.
--- NOTE | 2021-07-01 20:33 | NUR ---
ASSUMED PT CARE AT 1915 FROM SAIR RN PT LYING IN BED. ALERT AND ORIENTED AND ABLE TO MAKE NEEDS KNOWN. VERY SOFT SPOKEN. NOTED TO HAVE A WEAK COUGH, ESPECIALLY AFTER BEING GIVEN SPOONFULS OF THIN LIQUIDS, PER ST RECOMMENDATIONS. PT DENIES PAIN AT THIS TIME. RHYTHM NOTED TO BE AFIB WITH RATE 100-110. CARDIZEM GTT INFUSING AT 5MG/HR VIA POWERGLIDE TO CYNTHIA. BP'S STABLE AT THIS TIME, SEE FLOWSHEET. PT ON AIRVO AT 40L; FIO2 46%, SPO2 >90%, RR >30. CALL LIGHT IS WITHIN REACH; PT ABLE TO MAKE NEEDS KNOWN. SEE SHIFT SUMMARY FOR FURTHER DETAILS.
--- NOTE | 2021-07-01 23:07 | NUR ---
PT DECLINED HIS MYCELEX D/T THE DIFFICULTY OF THE MEDICATION DISSOLVING IN HIS MOUTH. STATES IT IS EASIER TO DISSOLVE IT IN WATER FIRST THAN LET IT SIT IN HIS MOUTH. INFORMED PT THAT THIS WOULDN'T BE OPTIMIZING THE MEDICATIONS EFFECTS; WILL PASS OFF TO DAY RN REGARDING CHANGING THE MYCELEX TO NYSTATIN SWISH AND SPIT/SWALLOW. PT IS ALSO MEDS CRUSHED IN APPLESAUCE; HOWEVER, COMPLAINS OF BURNING IN HIS THROAT D/T ULCERATIONS. INFORMED PT WE WOULD ATTEMPT MEDS CRUSHED IN PUDDING NEXT TIME FOR COMFORTABILITY. PT AGREED. PT HAS ALSO BEEN DECLINING HIS LIQUACEL; THEREFORE, WILL HAVE DAY RN INQUIRE ABOUT GETTING THIS MEDICATION D/C'D.
--- NOTE | 2021-07-02 04:14 | NUR ---
END OF SHIFT SUMMARY NO SIGNIFICANT CHANGES. PT REMAINS BEDBOUND WITH TOTAL ASSIST. ALERT AND ORIENTED AND ABLE TO MAKE NEEDS KNOWN. REFUSED ORAL CARE AND ONLY REQUESTED WATER. PT ASKED WHY HIS OXYGEN SATURATIONS ARE LOW DESPITE HOW MUCH OXYGEN HE IS ON. INFORMED PT THAT HE COULD BE SILENTLY ASPIRATING ON HIS WATER. HE DOES COUGH FREQUENTLY AFTER EACH SIP; NONETHELESS, HE HAS MULTIPLE ULCERATIONS INSIDE MOUTH, WELL ON LIPS THAT ARE SCABBED AND BLEEDING. EDUCATED ON IMPORTANCE OF ORAL CARES; HOWEVER, PT STATES THAT IT FALCON. HE REMAINS ON AIRVO AT 40L AND 46% FIO2; DIDN'T TOLERATE CPAP D/T DRY MOUTH. RESP RATE >30 ALL NIGHT. OXYGEN SATURATIONS >90% ALL NIGHT. VSS, SEE FLOWSHEET. PT DID REMAIN AFIB WITH RATE >100. CHANGED DRESSING TO WOUND ON BUTTOCKS/COCCYX; APPEARS MOISTURE ASSOCIATED IN NATURE D/T INCONTINENCE. PT CONTINUES TO HAVE BOWEL SMEARS. APPLIED MEPITEL TO WOUND BED AND COVERED WITH DRY ADHERENT DRESSING. PT C/O BACK PAIN AND R LEG CRAMPS IN WHICH HE WAS MEDICATED WITH TYLENOL WITH GOOD EFFECT. WILL CONTINUE TO MONITOR UNTIL REPORT IS HANDED OFF TO ONCOMING RN.
[2021-07-02 04:25] LABS: Hematocrit 24.9 % (37.0-53.0); Mean Corpuscular HGB Conc 32.1 g/dL (31.5-36.5); Mean Corpuscular Volume 97 fL (80-100); NRBC ABSOLUTE 1.11 K/mm3 (0.00-0.02); NRBC Auto 10.3 /100 WBC (0.0-0.2); Platelet Count 52 K/mm3 (150-400); RDW Standard Deviation 67.6 fL (35.1-46.3); Red Blood Cell Count 2.58 M/mm3 (4.30-5.90); White Blood Cell Count 10.79 K/mm3 (4.00-11.30)
[2021-07-02 04:41] LABS: Anion Gap 6 mmol/L (6-16); Blood Urea Nitrogen 17 mg/dL (8-24); Bun/Creatinine Ratio 39.2 (12.0-20.0); CO2, Blood 27 mmol/L (21-32); Calcium, Blood 7.7 mg/dL (8.5-10.1); Chloride, Blood 109 mmol/L (98-108); Creatinine, Blood 0.43 mg/dL (0.60-1.20); Glomerular Filtration Rate >60 (60-); Glucose, Blood 86 mg/dL (70-99); Potassium, Blood 3.5 mmol/L (3.5-5.5); Sodium, Blood 142 mmol/L (136-145)
--- NOTE | 2021-07-02 14:02 | NUR ---
TELEPHONE CALL TO DR. LIU FOR INCREASING HEART RATE. CURRENTLY AFIB 115-130. VERBAL ORDER TO RESTART CARDIZEM DRIP. DRIP STARTED AT 5MG/HR.
--- NOTE | 2021-07-02 17:46 | NUR ---
SHIFT SUMMARY: ASSUMED CARE AT 0700. A/A/OX3, REMAINS WEAK ON BEDREST. MOVES LEFT ARM TODAY TO REACH FOR THINGS. REACHES WITH RIGHT ARM TO ASSIST WITH ROLLING. BILATERAL WEAKNESS IN LEGS. Q2 TURNS, FLOATED WITH PILLOWS UNDER LEGS, BUTTOX AND ARMS BILATERALLY. CARDIZEM AT 5MG/HR, TPN AT 75ML/HR. PICC PLACED TODAY IN RIGHT UPPER ARM. NPO PER SPEECH THERAPY, NO ORAL MEDS. DR. LIU UPDATED, WILL CONTINUE TO MONITOR AND REEVALUATE. SCABS ON KNEES AND FEET BILATERALLY, BRUISING TO LEFT NECK AREA FROM PREVIOUS CENTRAL LINE. AIR VO 40L 30%. CHEST XRAY TODAY. HR AFIB WITH RATE 100-120. BLOOD PRESSURE STABLE, SATS 94-99%.TELEPHONE CALL TO DR. LIU IN EVENING REGARDING PAIN. VERBAL ORDER GIVEN FOR IV FENTANYL, PLACED IN [place]. REFUSED ORAL CARE BUT ASKED FOR DAMP WASH CLOTH TO WIPE MOUTH WHICH WAS PROVIDED SEVERAL TIMES. WOUND EVAL OF COCCYX BY WEEKDAY BABYSITTER. BANDAGED WITH XEROPHORM. ORDERS PLACED FOR DAILY DRESSING CHANGES. WILL CONTINUE TO MONITOR AND TREAT UNTIL CHANGE OF SHIFT.
--- NOTE | 2021-07-02 18:55 | NUR ---
TELEPHONE CALL TO JULIANO ROSALES COARSE THROUGHOUT, O2 DEMANDS INCREASING. VERBAL ORDER GIVEN FOR 40MG IV LASIX, RT NOTIFIED TO RESTART CPAP. WILL CONTINUE TO MONITOR.
--- NOTE | 2021-07-02 18:56 | NUR ---
CARDIZEM INCREASED TO 10MG/HR FOR HR SUSTAINING 130'S.
[2021-07-03 04:25] LABS: Magnesium, Blood 1.8 mg/dL (1.6-2.4)
[2021-07-03 04:26] LABS: Anion Gap 6 mmol/L (6-16); Blood Urea Nitrogen 19 mg/dL (8-24); Bun/Creatinine Ratio 40.7 (12.0-20.0); CO2, Blood 28 mmol/L (21-32); Calcium, Blood 7.7 mg/dL (8.5-10.1); Chloride, Blood 108 mmol/L (98-108); Creatinine, Blood 0.47 mg/dL (0.60-1.20); Glomerular Filtration Rate >60 (60-); Glucose, Blood 153 mg/dL (70-99); Phosphorus, Blood 3.2 mg/dL (2.5-4.9); Potassium, Blood 3.3 mmol/L (3.5-5.5); Sodium, Blood 142 mmol/L (136-145); Triglycerides 223 mg/dL (30-160)
--- NOTE | 2021-07-03 07:25 | NUR ---
ASSUMED CARE: PT IS RESTING IN BED AT BEDSIDE REPORT, SATTING AT 97% ON 50L/45% AIRVO, AFIB PER MONITOR IN THE RATE 110'S -120'S, CARDIZEM RUNNING AT 10MG/HR AND TPN RUNNING AT 75ML/HR VIA POWERGLIDE IN CYNTHIA. PT IS ABLE TO MAKE NEEDS KNOWN, CALL LIGHT WITHIN REACH, NO ACUTE NEEDS/DISTRESS AT THIS TIME.
--- NOTE | 2021-07-03 09:50 | NUR ---
DR LIU CALLED AFTER REVIEWING CXR AND NOTED THAT PICC LINE IS SUPPOSED TO COME BACK 4CM. SPOKE WITH SURAJ PICC RN WHO STATED HE WAS GOING TO REVIEW XRAY
--- NOTE | 2021-07-03 10:11 | NUR ---
LAB QUESTIONED SALIVA CORTISOL ORDER. CALL TO DR LIU TO SEE IF THIS IS AN ORDER HE WANTED. STATES HE DID WANT BOTH BASELINE AND SALIVA TEST. REMINDED THAT PT IS NPO WITH SORES IN HIS MOUTH THAT HAVE BEEN BLEEDING. STATES TO GO AHEAD AND CANCEL IF IT SEEMS PT CANNOT TOLERATE TEST. NOTIFIED LAB TO CANCEL ORDER.
--- NOTE | 2021-07-03 11:10 | NUR ---
REVIEWED [place] LINE ATTENDANT'S HEAD TO TOE ASSESSMENT AND AGREE
--- NOTE | 2021-07-03 16:00 | NUR ---
SURAJ Gillette RN ADJUSTED PICC LINE BY 4CM AND CHANGED STERILE DRESSING. CATHETER EXPOSED 15CM CURRENTLY, DRESSIGN C/D/I
--- NOTE | 2021-07-03 17:15 | NUR ---
SHIFT SUMMARY: PT IS A&OX3 AND SITTING UP IN BED W/ CALL LIGHT IN REACH. PT HAS BEEN ABLE TO VERBALIZE NEEDS AND HAS BEEN COOPERATIVE W/ CARE SUCH ORAL CARE, REPOSITIONING, POSITION DESCRIPTION MANAGER, BED BATH, AND WOUND CARE. PT HAS SUSTAINED O2 SAT OF 95-100% ON 50L/45% HEATED HIFLOW. PT CONTINUES TO HAVE ELEVATED RESPIRATIONS IN 25-30 RANGE, PT DENIES ANY CHEST PAIN/DIZZINESS. TELE MONITOR REPORTS AFIB RHYTM W/ RATE OF 90'S. PT STILL INSISTS ON WANTING TO DRIN KWATER, SPEECH THERAPY HAS STATES A STRICT NPO ORDER DUE TO ASPIRATION RISK, PT HAS HAD THIS EXPLAINED MULTIPLE TIMES, ACCEPTS ORAL SWABS INSTEAD WHEN PROMPTED. PT'S SCABS AROUND MOUTH REMAIN AND HAVE BEEN BLEEDING SLIGHTLY IF DISTURBED TOO MUCH. PT'S PICC LINE WAS PULLED 4CM PER ORDER AFTER REVIEWING XRAY, EXPOSED CATEHRTER IS NOW AT 15CM, DRESSING APPLIED W/ STERILE TECHNIQUE BY SURAJ Gillette RN AND REMAINS C/D/I. PT HAS HAD FAMILY MEMBERS COME IN AND OUT THROUGHOUT SHIFT AND THEY UNDERSTAND THE NEED FOR NPO STATUS. NO ACUTE NEEDS/DISTRESS AT THIS TIME.
[2021-07-04 04:41] LABS: Hematocrit 25.1 % (37.0-53.0); Hemoglobin 7.9 g/dL (13.5-17.5); Mean Corpuscular HGB 31.1 pg (26.0-34.0); Mean Corpuscular HGB Conc 31.5 g/dL (31.5-36.5); Mean Corpuscular Volume 99 fL (80-100); NRBC ABSOLUTE 3.89 K/mm3 (0.00-0.02); NRBC Auto 25.8 /100 WBC (0.0-0.2); RDW Coefficient Variation 21.1 % (11.7-14.2); RDW Standard Deviation 69.2 fL (35.1-46.3); Red Blood Cell Count 2.54 M/mm3 (4.30-5.90)
[2021-07-04 04:54] LABS: Anion Gap 6 mmol/L (6-16); Blood Urea Nitrogen 25 mg/dL (8-24); Bun/Creatinine Ratio 53.4 (12.0-20.0); CO2, Blood 32 mmol/L (21-32); Calcium, Blood 7.8 mg/dL (8.5-10.1); Chloride, Blood 106 mmol/L (98-108); Creatinine, Blood 0.47 mg/dL (0.60-1.20); Glomerular Filtration Rate >60 (60-); Glucose, Blood 127 mg/dL (70-99); Magnesium, Blood 1.9 mg/dL (1.6-2.4); Phosphorus, Blood 3.6 mg/dL (2.5-4.9); Potassium, Blood 3.4 mmol/L (3.5-5.5); Sodium, Blood 144 mmol/L (136-145)
[2021-07-04 05:03] LABS: Platelet Count 42 K/mm3 (150-400)
--- NOTE | 2021-07-04 07:32 | NUR ---
ASSUMED CARE: PT IS RESTING IN BED AT TIME OF BEDSIDE REPORT, CALL LIGHT IN REACH. PT SATTING AT 96% O2 ON 55L/38% HEATED HIFLOW, AFIB RHYTM IN RATE OF 100'S. CARDIZEM GTT RUNNING AT 10MG/HR, TPN GTT AT 75ML/HR. DIEHL CATHETER DRAINING CATHETER DRAINING TO GRAVITY. NO ACUTE NEEDS/DISTRESS AT THIS TIME.
--- NOTE | 2021-07-04 10:13 | NUR ---
REVIEWED TOOL POLISHER'S HEAD TO TOE ASSESSMENT AND AGREE
--- NOTE | 2021-07-04 12:00 | NUR ---
PT TAKEN TO CT BY TECH VIA GURNEY, PLACED ON NOREBREATHER AT 10LPM, CARDIZEM AND CPN GTT PAUSED FOR IMAGING.
--- NOTE | 2021-07-04 12:34 | NUR ---
PT BACK TO ROOM FROM CT, RT SUGGESTED TAPERING O2 DELIVERY, PLACED ON 8LPM VIA NC. PT TOLERATING WELL.
--- NOTE | 2021-07-04 14:52 | NUR ---
SWITCHED O2 TO 5LPM VIA NC, PT TOLERATING WELL, MAINTAINING >93% SATURATION.
--- NOTE | 2021-07-04 15:18 | NUR ---
PT'S O2 BEGAN TO DESAT INTO THE LOW 80'S W/ INCREASED WORK OF BREATHING ADN DIAPHRAGM MOVEMENT, WAS SWITCHED TO NON-REBREAKER AT 15LPM TO BRING O2 BACK TO 100%. RT WAS CALLED AND SWITCHED PT TO CPAP W/ 5L BLEED. RT BEGAN BREATHING TREATMENT, 02 REMAINS IN LOW 90'S.
--- NOTE | 2021-07-04 15:31 | NUR ---
CALL TO DR LIU TO MAKE HIM AWARE OF PT'S STATUS. PT HAVING INCREASE WORK OF BREATHING LEADING TO NEED FOR CPAP. CALL TO RT WHO GAVE PT BREATHING TX. PT HAD WHEEZES AND CRACKLES BEFORE AND AFTER TREATMENT WITH LITTLE IMPROVEMENT. SATURATION IMPROVED WITH CPAP. REVIEWED I AND O. DR LIU STATES TO GIVE PT 1 DOSE IV SOLUMEDROL AND TO CALL HIM WHEN PT'S ARRIVES FOR FURTHER DISCUSSION OF STATUS.
[2021-07-04 16:14] LABS: Anti-Xa UFH, PHA Monitoring <0.10 IU/mL; International Normalized Ratio 1.38; Prothrombin Time Results 14.2 Sec (9.7-11.5)
--- NOTE | 2021-07-04 17:40 | NUR ---
SHIFT SUMMARY: PT IS A&OX3, CALLS APPROPRIATELY FOR NEEDS. PT CAN BE CONFUSED ON OWN LIMITATIONS AND REQUIRES MAX ASSIST WITH ANY ADL'S/CARE. PT HAS SUSTAINED AFIB IN THE RATE OF 100'S, O2 SATS HAVE BEEN RANGING FROM 80'S TO LOW 90'S THROUGHOUT SHIFT. PT BEGAN SHIFT W/ 5LPM NC AND REQUIRED SWITCH TO NON-REBREATHER, THEN CPAP, THEN AIRVO PER RT. AIRVO CURRENTLY RUNNING AT 45L/66% AND PT IS SATTING AT 100%. PT REQUIRED BREATHING TX AND IV STEROIDS FOR SUDDEN DESAT IN O2, INCREASED WORK OF BREATHING, AND INCREASED WHEEZES/CRACKLES IN BREATH SOUNDS. CT WAS POSITIVE FOR PE, HEPARIN GTT STARTED AT 18U/KG/HR. CARDIZEM GTT RUNNING AT 10MG/HR AND TPN REMAINS AT 75MLS/HR. PT'S FAMILY IS AT BEDSIDE TO DISCUSS PLAN OF CARE W/ STORAGE ARCHITECT. PT ADN FAMILY HAVE BEEN DISCUSSING COMFORT CARE IN ROOM AND WILL MEET WITH CARE MANAGEMENT AT 1800.
--- NOTE | 2021-07-04 19:33 | NUR ---
Pt has stated he is done with treatments, and wants to begin comfort care now. He is very clear about his intentions, and family was present for the interaction, specifically his 2 sons and ex-, who is also his financial POA by the pt's choice. Dr. Daigle gave verbal order for comfort care. Comfort Care protocol put in place after a large family meeting where this RN answered questions about stopping treatments, use of symptom management, and lifted diet restriction. POLST completed, signed by pt's son at pt's request.
--- NOTE | 2021-07-05 05:50 | NUR ---
SHIFT SUMMARY ASSUMED CARE OF PT AT 1900. PT HAD ABOUT 15 FAMILY MEMEBERS IN THE ROOM TO SAY GOODBYE. THIS MADE PT VERY HAPPY. PT STAYED DURING THE NIGHT. PT STOPPED RECEIVING ALL BUT CARDIZEM UNTIL ABOUT 0000 WHEN SAID THAT PT DID NOT NEED TO PORLONG ANYTHING BY STILL TAKING MEDICATIONS, BUT IF HE NEEDED IT HE COULD HAVE IT. DICUSSED WHY PT WAS STILL ON DRIP AND DECIDED TOGETHER TO TAKE PT OFF. PT HAD NOT HAD ANY SOB, PT STATES HE FEELS FINE. PT DID ASK FOR A SMALL AMOUNT OF ATIVAN TO HELP HIM SLEEP. PT TOLD THIS NURSE THAT HE WANTED TO WAIT UNTIL HIS FAMILY CAME TO START TAKING MORE MEDICATION. WHEN ASKED IF PT WOULD LIKE TO BE REPOSITIONED PT STATES HE IS COMFORTABLE. DISCUSSED WITH THAT PT HAD TOO MANY FAMILY MEMEMBERS IN AND THAT IT WILL BE MORE REGULATED TODAY. PT AGREED AND SAID SHE WOULD TEXT THE FAMILY THIS INFORMATION. ER SCREENER NOTIFIED.
--- NOTE | 2021-07-05 13:50 | NUR ---
TRANSFER TO MEDICAL FLOOR PT COMFORT CARE, A&Ox4, HAS BEEN SLEEPING COMFORTABLY FOR MOST OF THE SHIFT. FAMILY AT BEDSIDE AND EFFECTIVELY REPORTS WHEN THE PATIENT APPEARS TO BE IN PAIN OR EXPERIENCING AIRHUNGER, MEDICATED PER EMAR. PT SLEEPING MORE HEAVILY AND RESPIRATIONS BECOMING IRREGULAR. PT REPORT GIVEN TO MEDICAL FLOOR RN AT 1340. PT TRANSFERED TO MEDICAL FLOOR WITH BELONGINGS AT 1350.
--- NOTE | 2021-07-05 16:35 | NUR ---
Spiritual Care - EOL Was present for the nurse calling TOPhilip. Pt. had been recently moved from [facility]. Established rapport and gave pastoral counel to family. Prayed with family. [facility] is the home the family has chosen. Family are staying until a few more family members arrive.
--- NOTE | 2021-07-05 17:46 | NUR ---
theraputic visits with family today. pt .
--- NOTE | 2021-07-05 18:13 | NUR ---
Pt transferred from PCU @ 1400. Family at bedside, pallalitative RN at bedside speaking with family. Pt resting comfortably, no s/sx pain/SOB observed. Family notified RN of pts passing, RN assessed respirations, apical pulse, no heart beat noted. Time of 1617, notified MD of pts passing. Spiritual care at bedside, family left at 1800. Postmortem care provided, changed gown. Family requested [place] home, Charge Nurse, notified home.
== END 2021-07-05 16:17 | DRG 871 ==
LOC: ER 10:17 → ICUW 14:21 → PCU 14:21 → ICUW 16:25 → MEDS 06-20 01:13 → PCU 06-30 04:54 → MEDS 07-05 14:00
PROVIDERS: Emergency Medicine; Internal Medicine; Internal Medicine Nephrology; Nurse Practitioner Acute Care; Pharmacist; ADMIT Internal Medicine
PROC: 3E03329 Introduction of Other Anti-infective into Peripheral Vein, Percutaneous Approach (ICD-10-PCS; principal; 2021-06-15)
PROC: 3E043XZ Introduction of Vasopressor into Central Vein, Percutaneous Approach (ICD-10-PCS; 2021-06-15)
PROC: 02HV33Z Insertion of Infusion Device into Superior Vena Cava, Percutaneous Approach (ICD-10-PCS; 2021-06-15)
PROC: B548ZZZ Ultrasonography of Superior Vena Cava (ICD-10-PCS; 2021-06-15)
PROC: 5A09357 Assistance with Respiratory Ventilation, Less than 24 Consecutive Hours, Continuous Positive Airway Pressure (ICD-10-PCS; 2021-06-16)
PROC: 5A0945A Assistance with Respiratory Ventilation, 24-96 Consecutive Hours, High Flow/Velocity Cannula (ICD-10-PCS; 2021-07-01)
PROC: 03H733Z Insertion of Infusion Device into Right Brachial Artery, Percutaneous Approach (ICD-10-PCS; 2021-07-02)
PROC: 3E0336Z Introduction of Nutritional Substance into Peripheral Vein, Percutaneous Approach (ICD-10-PCS; 2021-07-02)
DX: A41.01 Sepsis due to Methicillin susceptible Staphylococcus aureus (principal); G92.8 Other toxic encephalopathy; I63.9 Cerebral infarction, unspecified; J96.01 Acute respiratory failure with hypoxia; I26.99 Other pulmonary embolism without acute cor pulmonale; I33.0 Acute and subacute infective endocarditis; Z66 Do not resuscitate; Z51.5 Encounter for palliative care; N17.9 Acute kidney failure, unspecified; N39.0 Urinary tract infection, site not specified; I50.32 Chronic diastolic (congestive) heart failure; I48.20 Chronic atrial fibrillation, unspecified; E87.2 Acidosis; K92.0 Hematemesis; E87.0 Hyperosmolality and hypernatremia; N13.30 Unspecified hydronephrosis; D69.3 Immune thrombocytopenic purpura; E23.0 Hypopituitarism; E27.40 Unspecified adrenocortical insufficiency; R65.20 Severe sepsis without septic shock; E87.6 Hypokalemia; E88.09 Other disorders of plasma-protein metabolism, not elsewhere classified; R15.9 Full incontinence of feces; K12.30 Oral mucositis (ulcerative), unspecified; T17.908A Unspecified foreign body in respiratory tract, part unspecified causing other injury, initial encounter; Z68.34 Body mass index [BMI] 34.0-34.9, adult; G47.33 Obstructive sleep apnea (adult) (pediatric); E66.01 Morbid (severe) obesity due to excess calories; I11.0 Hypertensive heart disease with heart failure; Z79.899 Other long term (current) drug therapy; K86.9 Disease of pancreas, unspecified; R13.10 Dysphagia, unspecified; R33.9 Retention of urine, unspecified; E11.65 Type 2 diabetes mellitus with hyperglycemia; Z79.52 Long term (current) use of systemic steroids; Z79.01 Long term (current) use of anticoagulants; Z90.81 Acquired absence of spleen; Z86.718 Personal history of other venous thrombosis and embolism; Z86.711 Personal history of pulmonary embolism; Z98.890 Other specified postprocedural states; Z96.651 Presence of right artificial knee joint; Z90.49 Acquired absence of other specified parts of digestive tract; Z85.72 Personal history of non-Hodgkin lymphomas
CPT/HCPCS: 0241U; 31720; 36415; 36556; 36600; 51702; 70551; 71045; 71260; 74177; 74230; 80048; 80053; 80069; 80162; 80202; 80400; 82040; 82436; 82533; 82550; 82553; 82570; 82803; 82947; 83605; 83735; 83880; 83930; 83935; 84100; 84133; 84146; 84295; 84300; 84439; 84443; 84478; 84481; 84482; 85014; 85018; 85025; 85027; 85520; 85610; 85651; 85730; 86140; 86850; 86900; 86901; 87040; 87077; 87147; 87186; 92526; 92610; 92611; 93005; 93010; 93306; 94640; 94660; 94664; 94760; 94762; 96365; 96367; 96368; 96375; 97110; 97162; 97530; 99285-25; A9270; C1751; C9113; J0282; J0690; J0696; J0834; J1160; J1170; J1644; J1720; J1815; J1940; J2060; J2270; J2930; J3010; J3370; J3411; J3480; J7030; J7042; J7050; J7060; J7070; J7121; J7131; J7512; J8540; P9041; P9046; Q9967